=== PATIENT | male | born 1985 | race Caucasian/White ===

== ENCOUNTER 2021-08-08 16:23 | Emergency (ER) | payer MEDICAID ==
[~2021-08-08] VITALS: Ht 177.8 cm; Wt 74.0 kg
[2021-08-08 16:28] VITALS: BP 133/88
[2021-08-08] MEDS ORDERED: TETanus/Pertussis (Acell)/Diphther VAC/PF (Tdap-Adult) 0.5ml syringe IMVAC ONE (17:00)
[2021-08-08] MEDS ORDERED: LIDOcaine 1% 30ml preserv. free vial IJ ONE (17:00)
[2021-08-08] MEDS ORDERED: CEPH-585 PO (18:14)
[2021-08-08] MEDS ORDERED: bacitracin 15gm ointment TP ONE (18:15)
== END 2021-08-08 18:59 | disposition home or self-care (01) ==
LOC: ER 16:24
DX: S61.012A Laceration without foreign body of left thumb without damage to nail, initial encounter (principal); R42 Dizziness and giddiness; Z20.3 Contact with and (suspected) exposure to rabies; Z79.2 Long term (current) use of antibiotics; X58.XXXA Exposure to other specified factors, initial encounter; Y93.89 Activity, other specified; Y92.89 Other specified places as the place of occurrence of the external cause; Y99.8 Other external cause status
CPT/HCPCS: 12041; 90471; 90715; 99283; 99284

== ENCOUNTER 2023-12-29 18:37 | Emergency (ER) | payer MEDICAID ==
[~2023-12-29] VITALS: Ht 177.8 cm; Wt 70.0 kg
[2023-12-29] MEDS: normal saline 1000ml 1,000 ML IV ONE (20:26)
[2023-12-29] MEDS: LORazepam 2 mg/ml vial IV ONE (20:27)
[2023-12-29] MEDS: famotidine 10mg/ml inj IV ONE (20:28)
[2023-12-29 20:57] LABS: URINE AMPHETAMINE SCREEN NEGATIVE (Neg); URINE BARBITUATE SCREEN NEGATIVE (Neg); URINE BENZODIAZEPINES SCREEN NEGATIVE (Neg); URINE CANNABINOID SCREEN POSITIVE (Neg); URINE COCAINE SCREEN NEGATIVE (Neg); URINE METHADONE SCREEN NEGATIVE (Neg); URINE OPIATE SCREEN NEGATIVE (Neg); URINE PHENCYCLIDINE SCREEN NEGATIVE (Neg)
[2023-12-29 21:22] LABS: ANION GAP 11 (8-16); BLOOD UREA NITROGEN 7 MG/DL (7-18); BUN/CREATININE RATIO 6.3 (10.0-20.0); CHLORIDE 108 MMOL/L (99-107); CREATININE 1.11 MG/DL (0.60-1.10); GLUCOSE 91 MG/DL (70-104); POTASSIUM 3.6 MMOL/L (3.5-5.1); SODIUM 147 MMOL/L (135-145); TOTAL CARBON DIOXIDE 28.3 MMOL/L (24-32)
[2023-12-29 21:23] LABS: ALANINE AMINOTRANSFERASE 39 U/L (12-78); ALBUMIN 3.8 G/DL (3.4-5.0); ALBUMIN/GLOBULIN RATIO 1.1 (1.1-1.5); ALKALINE PHOSPHATASE 70 IU/L (46-116); ASPARTATE AMINO TRANSFERASE 46 U/L (10-37); BILIRUBIN,TOTAL 0.3 MG/DL (0.1-1.0); CALCIUM 8.4 MG/DL (8.5-10.1); TOTAL PROTEIN 7.4 G/DL (6.4-8.2); eCRCL 90 ML/MIN; eGFR 75 ML/MIN
[2023-12-29 21:26] LABS: ETHANOL 271 MG/DL (<10); LIPASE 30 U/L (16-77)
[2023-12-29 21:28] LABS: BASOPHILS # (AUTO) 0.1 X10'3 (0-0.2); BASOPHILS % (AUTO) 1.3 % (0-1); EOSINOPHILS # (AUTO) 0.1 X10'3 (0-0.9); EOSINOPHILS % (AUTO) 1.4 % (0-6); HEMATOCRIT 46.9 % (42.0-52.0); HEMOGLOBIN 16.1 g/dl (14.0-17.9); LYMPHOCYTES # (AUTO) 4.1 X10'3 (1.1-4.8); LYMPHOCYTES % (AUTO) 47.9 % (21-51); MEAN CORPUSCULAR HEMOGLOBIN 32.7 PG (27.0-31.0); MEAN CORPUSCULAR HGB CONC 34.3 g/dL (33.0-36.5); MEAN CORPUSCULAR VOLUME 95.4 FL (78-98); MEAN PLATELET VOLUME 8.1 FL (7.4-10.4); MONOCYTES # (AUTO) 0.9 X10'3 (0-0.9); MONOCYTES % (AUTO) 10.2 % (2-12); NEUTROPHILS # (AUTO) 3.4 X10'3 (1.8-7.7); NEUTROPHILS % (AUTO) 39.2 % (42-75); PLATELET COUNT 230 X10'3 (140-440); RED BLOOD COUNT 4.92 X10'6 (4.70-6.10); RED CELL DISTRIBUTION WIDTH 13.6 % (11.5-14.5); WHITE BLOOD COUNT 8.6 X10'3 (4.5-11.0)
[2023-12-29 23:57] VITALS: BP 121/72; PULSE 90; RESP 16; TEMP 98.8; O2SAT 97
== END 2023-12-30 00:11 | disposition home or self-care (01) ==
LOC: ER 18:38
DX: F10.239 Alcohol dependence with withdrawal, unspecified (principal); Y90.9 Presence of alcohol in blood, level not specified
CPT/HCPCS: 36415; 80053; 80305; 80320; 83690; 84484; 85025; 93005; 96361; 96374; 96375; 99284; J2060; J3490; J7030

== ENCOUNTER 2024-02-24 10:11 | Emergency (ER) | payer MEDICAID ==
[~2024-02-24] VITALS: Ht 175.3 cm; Wt 64.0 kg
[2024-02-24 10:30] VITALS: BP 138/91; PULSE 115; RESP 16; TEMP 98.6; O2SAT 98
== END 2024-02-24 10:58 | disposition home or self-care (01) ==
LOC: ER 10:12
DX: Z00.00 Encounter for general adult medical examination without abnormal findings (principal)
CPT/HCPCS: 99281

== ENCOUNTER 2024-03-25 15:33 | Emergency (ER) | payer MEDICAID ==
[~2024-03-25] VITALS: Ht 177.8 cm; Wt 77.3 kg
[2024-03-25 15:43] VITALS: BP 119/85; PULSE 127; TEMP 98.7; O2SAT 97
[2024-03-25 16:22] VITALS: RESP 16
== END 2024-03-25 18:20 | disposition home or self-care (01) ==
LOC: ER 15:34
DX: S05.12XA Contusion of eyeball and orbital tissues, left eye, initial encounter (principal); F10.10 Alcohol abuse, uncomplicated; Y90.9 Presence of alcohol in blood, level not specified; Y08.89XA Assault by other specified means, initial encounter; Y93.89 Activity, other specified; Y92.89 Other specified places as the place of occurrence of the external cause; Y99.8 Other external cause status
CPT/HCPCS: 70450; 99284

== ENCOUNTER 2024-04-20 07:59 | Emergency (ER) | payer MEDICAID ==
[~2024-04-20] VITALS: Ht 175.3 cm; Wt 78.0 kg
[2024-04-20 08:06] VITALS: BP 151/84; PULSE 86; RESP 16; O2SAT 99
[2024-04-20 09:46] VITALS: TEMP 97.3
== END 2024-04-20 09:47 | disposition home or self-care (01) ==
LOC: ER 08:00
DX: F10.239 Alcohol dependence with withdrawal, unspecified (principal)
CPT/HCPCS: 99281

== ENCOUNTER 2025-03-14 16:15 | Inpatient (IN) | payer OTHER, MEDICAID ==
[~2025-03-14] VITALS: Ht 177.8 cm; Wt 73.1 kg
--- NOTE | 2025-03-14 16:57 | Physician Documentation ---
History of Present Illness ~ Chief Complaint: Headache Stated Complaint: HEAD PAIN Time Seen by MD: 22:00 Primary Medical Doctor: NONE HPI This is a 39-year-old gentleman who has a prolific alcoholic drinking about a handle of liquor a day, comes in for evaluation of alcohol withdrawal. It has been about a 10 hours since the last drink. He has been seen at [facility] and has been prescribed Librium. He attempted to take that medication, and ended up throwing it up. He feels that he is getting worse. He would like to quit drinking permanently. Reports severe nausea and vomiting. Reports anxiety. Reports headache. No particular palliating or aggravating factors. He has never quit drinking before. No history of alcohol withdrawal seizures. Medication Reconciliation Allergies: Coded Allergies: No Known Allergies (Unverified , 03/14/25) Past Medical History Past Medical History: No Pertinent History Past Surgical History: noncontributory Review of Systems ROS 10 point review of systems was performed and unless noted above in HPI is negative for acute process/complaint. Physical Exam Vital Signs: Temperature: 97.8, Source: Temporal, Heart Rate: 114, Respiratory Rate: 20, BP: 152/85, Pulse Oximetry: 96, Weight: 73.100 Physical Exam GENERAL: Awake, alert, oriented, GCS 15, no apparent distress, non-toxic appearing, answers questions, follows commands appropriately. Anxious appearing. Examined in bed 9. HEENT: Atraumatic, normocephalic, pupils equal, extraocular muscles intact, sclerae anicteric, tongue fasciculation noted, mucus membranes moist, oropharynx is clear, no stridor. NECK: supple, full active range of motion, trachea midline, no thyromegaly, no lymphadenopathy, no JVD. CARDIOVASCULAR: Tachycardic and regular rate/rhythm, no murmurs/gallops/rubs, Pulses are 2+ in all extremities and symmetric. Capillary refill less than 2 seconds. PULMONARY: Nonlabored, good air movement ,no respiratory distress, speaking in full sentences, clear to auscultation bilaterally, no wheezing, no ronchi, no rales, no accessory muscle use. GASTROINTESTINAL: Soft, non-tender, non-distended, normal active bowel sounds, no organomegaly, no pulsatile masses, no CVA tenderness. NEUROLOGIC: Lucid with normal mental status. Normal facial symmetry. Moves all extremities symmetrically and with purpose. No truncal ataxia. Speech is fluid without evidence of dysarthria or aphasia, no focal deficits appreciated. Bilateral upper extremity tremors noted. MUSCULOSKELETAL: There is full range of motion of all extremities. There is no joint pain or joint swelling or joint erythema. There is no muscle pain or tenderness or swelling. EXTREMITIES: warm, well-perfused, no cyanosis, no clubbing, no edema, no acute deformities. Skin: warm, dry, no rashes or lesions, no jaundice, no petechiae orpurpura. No ecchymosis. PSYCHIATRIC: Anxious affect, normal insight, normal concentration. Focused exam: [] Progress Results/Orders Results/Orders Orders - JOHNNY SOTO DO * Vital Signs Routine* (03/14/25 22:00) * Activity * (03/14/25 22:00) * Implement/Maintain Seizure P (03/14/25 22:00) Branch Logistics Supervisor (03/14/25 22:00) Saline Lock (03/14/25 22:00) Lorazepam Inj (Ativan Inj) (03/14/25 22:00) Monitor (03/14/25 22:00) * Withdrawal Tx/Call Md If:* (03/14/25 22:00) Thiamine Inj. (Thiamine Inj.) (03/15/25 08:00) [facility] (03/14/25 22:20) Page Hospitalist (03/14/25 23:19) Fill Out Med Reconciliation (03/14/25 23:19) Completed Orders - JOHNNY SOTO DO Stat Ekg (03/14/25 ) Folic Acid Inj. (Folic Acid Inj.) (03/14/25 22:00) Cbc/Diff (03/14/25 22:00) Lipase (03/14/25 22:00) Pt Inr (03/14/25 22:00) PTT (03/14/25 22:00) MG (03/14/25 22:00) Normal Saline 1000ml (Sodium Chloride 10 (03/14/25 22:00) Hs Troponin I W Calculations (03/14/25 22:00) CMP (03/14/25 22:00) Phenobarbital Inj (Phenobarbital Inj.) (03/14/25 22:00) Prochlorperazine Inj (Compazine Inj) (03/14/25 22:25) Ethanol (03/14/25 22:11) Medications Received in ER Medications (Trade) Dose Ordered Sig/Chago Route PRN Reason Start Time Stop Time Status Last Admin Dose Admin (sodium chloride 1000ml IV soln) 1,000 ml ONCE ONCE IVB 03/14/25 22:00 03/14/25 22:07 DC 03/14/25 23:09 1,000 ML (phenoBARBITAL inj.) 260 mg ONCE ONCE IV 03/14/25 22:00 03/14/25 22:07 DC 03/14/25 23:04 260 MG Vital Signs 03/14/25 03/14/25 16:32 20:26 Temp 97.8 Pulse 114 118 Resp 20 16 B/P (MAP) 152/85 141/95 (110) Pulse Ox 96 95 O2 Flow Rate 0 Laboratory Tests Test 03/14/25 22:11 White Blood Count 8.1 Red Blood Count 4.78 Hemoglobin 15.1 Hematocrit 44.3 Mean Corpuscular Volume 92.8 Mean Corpuscular Hemoglobin 31.6 H Mean Corpuscular Hemoglobin Concent 34.0 Red Cell Distribution Width 14.8 H Platelet Count 126 L Mean Platelet Volume 7.3 L Neutrophils (%) (Auto) 67.8 Lymphocytes (%) (Auto) 20.5 L Monocytes (%) (Auto) 9.9 Eosinophils (%) (Auto) 0.6 Basophils (%) (Auto) 1.2 H Neutrophils # (Auto) 5.5 Lymphocytes # (Auto) 1.7 Monocytes # (Auto) 0.8 Eosinophils # (Auto) 0.0 Basophils # (Auto) 0.1 CBC Comment Prothrombin Time 10.8 INR International Normalized Ratio 1.1 Activated Partial Thromboplast Time 28 Coagulation Comments Sodium Level 142 Potassium Level 3.3 L Chloride Level 100 Carbon Dioxide Level 30.6 Anion Gap 11 Blood Urea Nitrogen 11 Creatinine 0.85 Estimated GFR/1.73 m2 > 90 BUN/Creatinine Ratio 12.9 Glucose Level 87 Calcium Level 8.2 L Magnesium Level 1.6 Total Bilirubin 0.6 Aspartate Amino Transf (AST/SGOT) 108 H Alanine Aminotransferase (ALT/SGPT) 80 H Alkaline Phosphatase 89 Troponin I High Sensitivity 36 Total Protein 6.9 Albumin 3.6 Globulin 3.3 Albumin/Globulin Ratio 1.1 Lipase 35 Chemistry Comments Ethyl Alcohol Level 232 H Medical Decision Making Findings Facility Status: ED Holds, RME process The plan was discussed with the patient, who demonstrates clear understanding of the plan and is in agreement with the plan unless otherwise noted in the chart. All questions have been answered, all concerns were addressed unless otherwise documented. I was available throughout their ED stay for frequent reassessment and questions. Differential Diagnoses (considered and possible or likely): [Alcohol withdrawal, uncomplicated, alcohol withdrawal complicated by delirium tremors, hallucinations, seizures, dehydration, electrolyte derangement, alcoholic ketoacidosis, headache most likely related to alcohol withdrawal, less likely tension, less likely migraine, less likely trigeminal neuralgia, less likely foster organic. Unlikely to represent intracranial bleed.] ??Differential Diagnoses (considered and unlikely, not requiring evaluation currently): [No evidence of lateralizing signs to suspect a stroke, no trauma. He did report trauma six days ago, however received a palliation at [facility] including CTs.] MDM Data Please see [facility] for the following: Independent Historians and external Records Demetrio hawkins. Historian: [Patient] Independent Historians: ?[Record review] Medication Management: [Reviewed medication list] Social History and determinants: [Reviewed] Please see the body of the note for the following: Any independent interpretations of ECG, imaging studies. All vitals signs/haemodynamics, ordered tests were independently reviewed and interpreted by myself. Nursing triage complaint and vitals reviewed, additional nursing notes were reviewed as available and I agree unless otherwise noted or documented in contradiction in the chart Vital Signs: Independently reviewed Labs: Independently interpreted Imaging: Independently interpreted Old Medical Records: Independently reviewed, see [facility] for relevant summary and information Pulse Oximetry: [95%] interpreted as [normal on room air] by me [Plumbing Mechanic: Tachycardic Rate, Regular rhythm, no ectopy, sinus tachycardia. reviewed and interpreted by me] Additionally notably showing: [Tachycardic, hypotensive, anxious/agitated, consistent with a alcohol withdrawal] alcohol is 232, however the gentleman is obviously clinically withdrawing. It is likely that he lives at a very high alcohol level. Otherwise unremarkable laboratory workup. Tests considered but not ordered include: [Advanced imaging of the head current but does not appear to be necessary] Social Determinants of Health Impact: Patient was evaluated in [facility] [place] to healthcare due to below par ratio of patient to medical providers. [] Comorbid Conditions Impacting Present Evaluation and Care/Treatment: [Prolific alcoholism] Management Discussions with other Healthcare Providers: [Hospitalist regarding admission] Treatment and Disposition Medication Management (Given or considered): [Phenobarbital and Ativan PRN]. See EMR for details Consideration for Hospitalization/Escalation/Deescalation of Care: Admission for observation is necessary for further management of his alcohol withdrawal ?ED Course:?[See why improved with phenobarbital] ?Shared decision making:?[] Code status:?FULL Please see the full Electronic Medical Record for full details of nursing documentation, medications list, other records of complete past medical history and conditions, vital signs, laboratory studies, and any radiologic study interpretations by radiologists. Portions of this note were completed using [employer] dictation software and as a result there may exist minor errors in spelling. I have reviewed elements of past family and social history and agree as included in note. Departure Disposition: ADMITTED INPATIENT Admitted to Inpatient Unit: to hospitalist Impression: Primary Impression: Alcohol withdrawal Additional Impression: Headache Condition: Improved Referrals: NO PRIMARY CARE PROVIDER (PCP) Critical Care Note Critical Care Note CRITICAL CARE TIME: [ 35] minutes Treatments/Evaluations: Close monitoring and treatment of unstable vital signs, cardiorespiratory, and neurologic status, while maintaining tight balance of fluid, respiratory, and cardiac interventions. This time includes discussing the case with the patient and the patients family. This time does not include all procedures stated elsewhere in this record. This time also includes reviewing old records, labs and radiological studies. This time includes examining and re-examining the patient. Additionally, this time also includes arranging care with admitting and consulting physicians. Additional Comment Medical Screen Exam History: This is a 39-year-old male who presents by EMS from [facility], patient reports he sustained a concussion several days ago in his had a headache ever since, patient reports that he has been drinking large amounts of alcohol to treat the headache and therefore he has not been taking his prescribed lithium. Exam: VITALS: Reviewed and as above. GENERAL: Alert, nontoxic appearing, no apparent distress RESPIRATORY: No increased work of breathing, no respiratory distress, speaking in full clear sentences Signature Scribe Signature: No scribe Attestation: This note accurately reflects clinical decisions, work performed by myself, Johnny Soto, [facility] Mar 14, 2025 16:57 JOHNNY SOTO DO Mar 14, 2025 22:30
--- NOTE | 2025-03-14 21:52 | ELECTROCARDIOGRAPH REPORT ---
[facility] Test Date: 2025-03-14 Test Time: 21:50:49 Pat Name: BARBARA BOLAÑOS Department: EMERGENCY ROOM Room: Gender: M Gas Engine Mechanic: MONICA : 1985 Requested By: BEATRIZ SOTO Order Number: [id number] Reading MD: Measurements Intervals [place] Rate: 88 P: 50 MD: 140 QRS: 67 QRSD: 84 T: 54 QT: 359 QTc: 435 Interpretive Statements Sinus rhythm Abnormal R-wave progression, early transition Minimal ST elevation, anterior leads Please click the below link to view image of tracing.
[2025-03-14] MEDS ORDERED: folic acid 1mg/0.2ml inj IV ONE (22:00)
[2025-03-14 22:22] LABS: BASOPHILS # (AUTO) 0.1 X10'3 (0-0.2); BASOPHILS % (AUTO) 1.2 % (0-1); EOSINOPHILS % (AUTO) 0.6 % (0-6); HEMATOCRIT 44.3 % (42.0-52.0); HEMOGLOBIN 15.1 g/dl (14.0-17.9); LYMPHOCYTES # (AUTO) 1.7 X10'3 (1.1-4.8); LYMPHOCYTES % (AUTO) 20.5 % (21-51); MEAN CORPUSCULAR HEMOGLOBIN 31.6 PG (27.0-31.0); MEAN CORPUSCULAR VOLUME 92.8 FL (78-98); MEAN PLATELET VOLUME 7.3 FL (7.4-10.4); MONOCYTES # (AUTO) 0.8 X10'3 (0-0.9); MONOCYTES % (AUTO) 9.9 % (2-12); NEUTROPHILS # (AUTO) 5.5 X10'3 (1.8-7.7); NEUTROPHILS % (AUTO) 67.8 % (42-75); PLATELET COUNT 126 X10'3 (140-440); RED BLOOD COUNT 4.78 X10'6 (4.70-6.10); RED CELL DISTRIBUTION WIDTH 14.8 % (11.5-14.5); WHITE BLOOD COUNT 8.1 X10'3 (4.5-11.0)
[2025-03-14 22:30] LABS: APTT 28 SECONDS (22-32); INR 1.1 INR; PROTHROMBIN TIME 10.8 SECONDS (9.0-12.0)
[2025-03-14 22:32] LABS: ALANINE AMINOTRANSFERASE 80 U/L (12-78); ALBUMIN 3.6 G/DL (3.4-5.0); ALBUMIN/GLOBULIN RATIO 1.1 (1.1-1.5); ALKALINE PHOSPHATASE 89 IU/L (46-116); ANION GAP 11 (8-16); ASPARTATE AMINO TRANSFERASE 108 U/L (10-37); BILIRUBIN,TOTAL 0.6 MG/DL (0.1-1.0); BLOOD UREA NITROGEN 11 MG/DL (7-18); BUN/CREATININE RATIO 12.9 (10.0-20.0); CALCIUM 8.2 MG/DL (8.5-10.1); CHLORIDE 100 MMOL/L (99-107); CREATININE 0.85 MG/DL (0.60-1.10); GLUCOSE 87 MG/DL (70-104); LIPASE 35 U/L (16-77); MAGNESIUM 1.6 MG/DL (1.5-2.4); POTASSIUM 3.3 MMOL/L (3.5-5.1); SODIUM 142 MMOL/L (135-145); TOTAL CARBON DIOXIDE 30.6 MMOL/L (24-32); TOTAL PROTEIN 6.9 G/DL (6.4-8.2); eCRCL 122 ML/MIN; eGFR > 90 ML/MIN
[2025-03-14 22:40] LABS: ETHANOL 232 MG/DL (<10)
[2025-03-14] MEDS: phenoBARBITAL sod 130mg/ml inj. IV ONE (23:04)
[2025-03-14] MEDS: normal saline 1000ML IV soln IVB ONE (23:09)
[2025-03-14] MEDS: proCHLORperazine 10 MG/2 ml inj IV ONE (23:39)
[2025-03-14] MEDS ORDERED: thiamine 100mg/ml 2ml inj. IV SCH (23:49)
[2025-03-14] MEDS ORDERED: acetaminophen 325mg tablet PO PRN (23:55)
[2025-03-14] MEDS ORDERED: morphine 2 MG/ML inj. syringe IV PRN (23:55)
[2025-03-14] MEDS ORDERED: potassium Cl 20 mEq SR tablet PO PRN (23:55)
[2025-03-14] MEDS ORDERED: magnesium sulf-water 4G/100mL 100 ML IV PRN (23:55)
[2025-03-14] MEDS ORDERED: magnesium hydroxide 30ml (MOM) UD suspension PO PRN (23:55)
[2025-03-14] MEDS ORDERED: magnesium sulf-water 2g/50mL 50 ML IV PRN (23:55)
[2025-03-14] MEDS ORDERED: magnesium Cl slow-release 64mg tablet PO PRN (23:55)
[2025-03-14] MEDS ORDERED: HYDROmorphone inj. 0.5 MG/0.5 ML DISP.SYRIN IV PRN (23:55)
[2025-03-14] MEDS ORDERED: potassium Cl 40MEQ/1/2NS 520ml 520 ML IV PRN (23:55)
[2025-03-15] VITALS (7 sets, daily range): BP systolic 124–145; BP diastolic 72–87; PULSE 57–71; RESP 15–21; TEMP 97.2–98.9; O2SAT 95–99
[2025-03-15] MEDS ORDERED: LORazepam 2 mg/ml vial IV PRN
[2025-03-15] MEDS ORDERED: dextrose 50%-water 50ml dispensing syringe IV PRN
[2025-03-15] MEDS ORDERED: haloperidol lactate 5mg/ml inj IM PRN
--- NOTE | 2025-03-15 01:01 | HISTORY AND PHYSICAL-Residence ---
History & Physical Providers to CC Resident Creating Document: AMRYELLEN SALAZAR RES ~ History of Present Illness Primary Medical Doctor: NONE Reason for Admit\Complaint: Alcohol withdrawal, alcohol intoxication History of Present Illness 39-year-old male with past medical history of alcohol use disorder presented to the ER after alcohol intoxication along with his friend(Ricardo) at [facility]. His last drink seems to be around 13 hours back but he he could not able to clearly tell the exact time. He do reports couple of vodka shots before 10:00 p.m. he endorses nausea and vomiting for the past one day, 3-5 episodes after he attempted to take Librium ,prescribed at [facility]. Complaining of loss of consciousness after alcohol intoxication. He do reports headache, occipital region. He denied pain abdomen, abdominal distention, seizure, photophobia, decreased urine output, swelling of legs, chest pain, palpitations, fever, cough, wheeze. He has been drinking the alcohol for quite a long time Discussed code status with the patient patient wants to be in full code Allergies: Coded Allergies: No Known Allergies (Unverified , 03/14/25) Home Medications Home Medications Active Past Medical History Past Medical History Alcohol use disorder Eye contusion Past Surgical History Surgical History Comment Noncontributory Family History Family History: Patient reports no known family medical history. Past Social History Smoking: Non-Smoker Alcohol Use: Heavy Drug Use: Marijuana ROS All Other Systems: Reviewed and Negative ROS Reviewed in full and negative except positive pertinent as in HPI Exam Vitals: Vital Signs Date Time Temp Pulse Resp B/P (MAP) Pulse Ox O2 Delivery O2 Flow Rate FiO2 03/15/25 00:16 10 03/14/25 20:26 118 95 0 03/14/25 16:32 97.8 General: General: Awake, alert, oriented, GCS 15, no apparent distress, non-toxic appearing, answers questions, follows commands appropriately. Anxious appearing. Heent: Atraumatic, normocephalic, bilateral conjunctival congestion is present. pupils equal, extraocular muscles intact, sclerae anicteric, tongue fasciculatio n noted, mucus membranes moist, oropharynx is clear, no stridor. Neck: supple, full active range of motion, trachea midline, no thyromegaly, no lymphadenopathy, no JVD. Cardiovascular:: Tachycardic and regular rate/rhythm, no murmurs/gallops/rubs, Pulses are 2+ in all extremities and symmetric. Capillary refill less than 2 seconds. Respiratory system: Nonlabored, good air movement ,no respiratory distress, speaking in full sentences, clear to auscultation bilaterally, no wheezing, no ronchi, no rales, no accessory muscle use. Gastrointestinal: Soft, non-tender, non-distended, normal active bowel sounds, no organomegaly, no pulsatile masses, no CVA tenderness. Neurological system: Lucid with normal mental status. Normal facial symmetry. Moves all extremities symmetrically and with purpose. No truncal ataxia. Speech is fluid without evidence of dysarthria or aphasia, no focal deficits appreciated. Bilateral upper extremity tremors noted. Musculoskeletal: There is full range of motion of all extremities. There is no joint pain or joint swelling or joint erythema. There is no muscle pain or tenderness or swelling. Extremities: warm, well-perfused, no cyanosis, no clubbing, no edema, no acute deformities. Skin: warm, dry, no rashes or lesions, no jaundice, no petechiae orpurpura. No ecchymosis. Psychiatric: Anxious affect, normal insight, normal concentration Diagnostic Data Last Recorded Lab Results: 03/14/25 2211 03/14/25 2211 Diagnostic Data: Laboratory Tests Test 03/14/25 22:11 Prothrombin Time 10.8 SECONDS (9.0-12.0) INR International Normalized Ratio 1.1 INR Activated Partial Thromboplast Time 28 SECONDS (22-32) Coagulation Comments Advance Care Planning Advanced Care planning: Add on additional 30 min Additional Plan Acute metabolic encephalopathy secondary to acute alcohol intoxication In alcohol withdrawal Hypokalemia Tachycardia and high blood pressures are noted suggestive of alcohol withdrawal CBC is not impressive . Potassium is 3.3, AST 108, ALT 80 Troponin and lipase is normal EKGs normal Ethyl alcohol level is 232 director of volunteer services and substance use navigator consult were placed and we will appreciate the recommendation Patient is on moderate alcohol detox protocol with thiamine, folic acid, multivitamin, lorazepam, Haldol and we will start dextrose after thiamine Ordered CT and CT ruled out acute intracranial abnormality. Chest x-ray is normal Urine analysis and U tox is ordered Patient is on potassium replacement protocol and we will Continue to monitor CMP Marijuana use UA tox is ordered and we will follow up with the results Code status: Full code Diet: NPO until bedside speech therapy evaluation/swallowing PT: Ordered Prognosis: Guarded Maryellen Salazar resident Date of Service: Mar 15, 2025 Billing Provider: SHERRIE ADORNO MD, VENKATESH, RES Mar 15, 2025 01:01
--- NOTE | 2025-03-15 01:11 | RADIOLOGY REPORT ---
EXAM: CT CT HEAD INDICATION: ACUTE METABOLIC ENCEPHALOPATHY WITH ACUTE ALCOHOL INTOXICATION TECHNIQUE: CT of the head without intravenous contrast. Radiation Dose : 1. Head: CT Dose: CTDI volume is 61.28 mGy. Dose-length product is 1125.4 mGy*cm The dose indicators for CT are the volume Computed Tomography (CT) Dose Index (CTDIvol) and the Dose Length Product (DLP), and are measured in units of mGy and mGy-cm, respectively. These indicators are not patient dose, but values generated from the CT scanner acquisition factors. The report includes radiation exposure data for exposures received during this examination. COMPARISON: CT CT HEAD on DOS: 03/25/24 FINDINGS: There is no evidence of acute intracranial hemorrhage, extra-axial collection, mass effect, midline s hift, herniation or hydrocephalus. The ventricles, sulci and cisterns are age appropriate. The ortiz-white differentiation is intact. Minimal bilateral maxillary mucosal sinus disease. The remaining visualized paranasal sinuses and ma stoid air cells are clear. The surrounding soft tissues and osseous structures are unremarkable. IMPRESSION: 1. No acute intracranial abnormality. Radiation optimization: All CT scans at this facility use at least one of these dose optimization malena hniques: automated exposure control mA and/or kV adjustment per patient size (includes targeted exam s where dose is matched to clinical indication) or iterative reconstruction.
--- NOTE | 2025-03-15 01:13 | RADIOLOGY REPORT ---
CHEST RADIOGRAPH Indication: ALCOHOL WITHDRAWAL, ALCOHOL INTOXICATION Technique: Single frontal view of the chest was obtained COMPARISON: None FINDINGS: Lines and Tubes: None Lungs: Clear Pleura: No effusion. No pneumothorax. Cardiomediastinal contours: Unremarkable Bones: Unremarkable IMPRESSION: 1. No acute disease.
[2025-03-15] MEDS: normal saline 1000ml 1,000 ML IV SCH (01:44)
[2025-03-15] MEDS: thiamine 100mg/ml 2ml inj. IV ONE (01:44)
[2025-03-15 03:20] LABS: BASOPHILS # (AUTO) 0.1 X10'3 (0-0.2); BASOPHILS % (AUTO) 1.4 % (0-1); EOSINOPHILS % (AUTO) 0.4 % (0-6); HEMATOCRIT 40.5 % (42.0-52.0); HEMOGLOBIN 13.9 g/dl (14.0-17.9); LYMPHOCYTES # (AUTO) 2.2 X10'3 (1.1-4.8); LYMPHOCYTES % (AUTO) 24.7 % (21-51); MEAN CORPUSCULAR HEMOGLOBIN 31.7 PG (27.0-31.0); MEAN CORPUSCULAR HGB CONC 34.2 g/dL (33.0-36.5); MEAN CORPUSCULAR VOLUME 92.8 FL (78-98); MEAN PLATELET VOLUME 7.5 FL (7.4-10.4); MONOCYTES # (AUTO) 0.7 X10'3 (0-0.9); MONOCYTES % (AUTO) 7.8 % (2-12); NEUTROPHILS % (AUTO) 65.7 % (42-75); PLATELET COUNT 116 X10'3 (140-440); RED BLOOD COUNT 4.37 X10'6 (4.70-6.10); RED CELL DISTRIBUTION WIDTH 14.7 % (11.5-14.5); WHITE BLOOD COUNT 9.1 X10'3 (4.5-11.0)
[2025-03-15 03:28] LABS: INR 1.1 INR; PROTHROMBIN TIME 10.9 SECONDS (9.0-12.0)
[2025-03-15 03:32] LABS: ALANINE AMINOTRANSFERASE 72 U/L (12-78); ALBUMIN 3.1 G/DL (3.4-5.0); ALBUMIN/GLOBULIN RATIO 1.1 (1.1-1.5); ALKALINE PHOSPHATASE 80 IU/L (46-116); AMYLASE 43 U/L (25-115); ANION GAP 9 (8-16); ASPARTATE AMINO TRANSFERASE 94 U/L (10-37); BILIRUBIN,TOTAL 0.8 MG/DL (0.1-1.0); BLOOD UREA NITROGEN 9 MG/DL (7-18); CALCIUM 7.5 MG/DL (8.5-10.1); CHLORIDE 103 MMOL/L (99-107); CREATININE 0.69 MG/DL (0.60-1.10); GLUCOSE 73 MG/DL (70-104); LIPASE 34 U/L (16-77); MAGNESIUM 1.5 MG/DL (1.5-2.4); PHOSPHORUS 2.8 MG/DL (2.3-4.5); POTASSIUM 3.1 MMOL/L (3.5-5.1); SODIUM 141 MMOL/L (135-145); TOTAL CARBON DIOXIDE 28.7 MMOL/L (24-32); eCRCL 150 ML/MIN; eGFR > 90 ML/MIN
[2025-03-15] MEDS ORDERED: NO HOME MEDS (07:04)
[2025-03-15 07:09] LABS: URINE AMPHETAMINE SCREEN NEGATIVE (Neg); URINE BARBITUATE SCREEN POSITIVE (Neg); URINE BENZODIAZEPINES SCREEN POSITIVE (Neg); URINE CANNABINOID SCREEN POSITIVE (Neg); URINE COCAINE SCREEN NEGATIVE (Neg); URINE METHADONE SCREEN NEGATIVE (Neg); URINE OPIATE SCREEN NEGATIVE (Neg); URINE PHENCYCLIDINE SCREEN NEGATIVE (Neg)
[2025-03-15 07:35] LABS: BILIRUBIN,URINE NEGATIVE (Neg); CLARITY,URINE CLEAR (Clear); COLOR,URINE YELLOW (Yellow); GLUCOSE, URINE NEGATIVE (Neg); KETONES,URINE 40 mg/dl (Neg); LEUKOCYTE ESTERASE ,URINE NEGATIVE (Neg); NITRITES, URINE NEGATIVE (Neg); OCCULT BLOOD,URINE NEGATIVE (Neg); PROTEIN,URINE TRACE mg/dl (Neg)
[2025-03-15 07:37] LABS: BACTERIA,URINE NONE SEEN /HPF (Neg); SQUAMOUS EPITHELIAL CELL,UR FEW /LPF (FEW); UA COLLECTION TYPE CLN CATCH MIDSTREAM
[2025-03-15 07:38] LABS: MUCUS STRANDS NONE SEEN /LPF (Neg); RBC,URINE 0-2 /HPF (0-2); WBC,URINE 0-4 /HPF (0-4)
[2025-03-15] MEDS: docusate sod 100mg capsule PO SCH (08:00)
[2025-03-15] MEDS: K and/or MAG REPLACEMENT MC SCH (08:00)
[2025-03-15] MEDS: potassium Cl 20 mEq SR tablet PO PRN (10:24)
[2025-03-15] MEDS: multivitamins, therapeutics tablet PO SCH (10:24)
[2025-03-15] MEDS: thiamine 100mg/ml 2ml inj. IV SCH (10:25)
[2025-03-15] MEDS: atenolol 50mg tablet PO SCH (10:25)
[2025-03-15] MEDS: folic acid 1mg/0.2ml inj IV ONE (10:26)
[2025-03-15] MEDS: LORazepam 2 mg/ml vial IV PRN (10:26)
[2025-03-15] MEDS: ondansetron/PF 4mg/2ml inj IV PRN (10:29)
[2025-03-15] MEDS: mag hydrox/Alum hydrox/simeth 30ml oral suspension PO PRN (10:29)
--- NOTE | 2025-03-15 15:58 | PROGRESS NOTE- Residence ---
Progress Note - Resident Providers to CC Resident Creating Document: RED VELARDE, RES ~ Antibiotic Timeout Antibiotic Ordered?: No Subjective The patient has been evaluated at the bedside. The patient reports improvement. Currently with signs of shakiness in bilateral upper extremities. Objective Vital Signs Date Time Temp Pulse Resp B/P (MAP) Pulse Ox O2 Delivery O2 Flow Rate FiO2 03/15/25 11:00 97.2 71 17 145/74 (97) 98 Room Air 03/15/25 06:20 0 Physical exam: General: Well alert, well oriented, not confused, not agitated, not in acute distress, well cooperated during the physical. HEENT: Conjunctive are pink, sclerae clear, no icterus, pupil is equal in both sides, reactive to light, no ear discharge, no pharyngeal erythema or an edema. Neck: Supple, no JVD, no lymphadenopathy and thyromegaly. Chest: Equal air entry on both lungs, no additional sounds no rhonchi no wheezing at the moment. Cardiovascular: S1-S2 regular sinus rhythm and, regular rate, no gallops, no rubs, no murmurs Abdomen: No visible peristalsis, Bowel sounds present on auscultation, soft, nontender, no guarding, no rigidity Extremities: No obvious deformities, no pitting edema bilaterally, capillary refill intact, peripheral pulsations are intact on both sides, bilateral upper extremity tremors evidenced on physical exam. Central Nervous System: No focal neurological deficits, no motor or sensory weakness in all 4 extremities, could move all 4 extremities, 2+ deep tendon reflexes, negative Babinski. Musculoskeletal: No joint swelling, deformities, inflammations, and no scoliosis and back tenderness Skin: Warm and dry. Result Diagram: 03/15/25 0304 03/15/25 0304 Coagulation Studies Laboratory Tests Test 03/14/25 22:11 03/15/25 03:04 Activated Partial Thromboplast Time 28 SECONDS (22-32) Prothrombin Time 10.9 SECONDS (9.0-12.0) INR International Normalized Ratio 1.1 INR Coagulation Comments Assessment Assessment 39-year-old male patient came to the hospital with chief complaint of loss of consciousness after alcohol intoxication. Plan Plan Acute metabolic encephalopathy secondary to acute alcohol intoxication Alcohol withdrawal: CIWA score: 9 points. Requires medication for withdrawal: Hypokalemia: Tachycardia and high blood pressures are noted suggestive of alcohol withdrawal CBC is not impressive . Potassium is 3.3, AST 108, ALT 80 Troponin and lipase is normal EKGs normal Ethyl alcohol level is 232 human services program specialist and substance use navigator consult were placed and we will appreciate the recommendation Patient is on moderate alcohol detox protocol with thiamine, folic acid, multivitamin, lorazepam, Haldol and we will start dextrose after thiamine Ordered CT and CT ruled out acute intracranial abnormality. Chest x-ray is normal Urine analysis and U tox is ordered Patient is on potassium replacement protocol and we will Continue to monitor CMP 03/15/2025: Continue folic acid IV 1 mg daily, thiamine 200 mg t.i.d., multivitamins, on lorazepam and Haldol PRN. Urine toxicology positive for cannabinoids. Substance use disorder and long term care social worker consulted. Replace potassium as per protocol. Substance use disorder: Marijuana use Urine toxicology positive for cannabinoids. Substance use disorder and long term care social worker consulted. Code status: Full code DVT prophylaxis: None Analgesia/sedation: Ativan, morphine Line/tube: PIV GI prophylaxis: Protonix Nutrition: Regular diet PT: Ordered Prognosis: Guarded Disposition: We will continue medical management. Anticipated discharge tomorrow. Red Madrigal Internal Medicine Resident [facility] Date of Service: Mar 15, 2025 Billing Provider: GEOVANY GARCES MD Common Visit Codes: [id number] INP/OBS CARE(HIGH) RED VELARDE, RES Mar 15, 2025 15:58 GEOVANY GARCES MD Mar 16, 2025 08:08
[2025-03-15] MEDS ORDERED: morphine 4 MG/ML inj SYRINge IV PRN (17:40)
[2025-03-16 02:00] VITALS: BP 112/73; PULSE 53; RESP 13; TEMP 97.6; O2SAT 99
[2025-03-16 06:00] VITALS: BP 104/72; PULSE 62; RESP 18; TEMP 97.4; O2SAT 96
[2025-03-16 06:09] LABS: BASOPHILS # (AUTO) 0.1 X10'3 (0-0.2); BASOPHILS % (AUTO) 0.9 % (0-1); EOSINOPHILS # (AUTO) 0.2 X10'3 (0-0.9); EOSINOPHILS % (AUTO) 2.1 % (0-6); HEMATOCRIT 42.5 % (42.0-52.0); HEMOGLOBIN 14.6 g/dl (14.0-17.9); LYMPHOCYTES # (AUTO) 1.6 X10'3 (1.1-4.8); LYMPHOCYTES % (AUTO) 22.6 % (21-51); MEAN CORPUSCULAR HEMOGLOBIN 31.9 PG (27.0-31.0); MEAN CORPUSCULAR HGB CONC 34.5 g/dL (33.0-36.5); MEAN CORPUSCULAR VOLUME 92.5 FL (78-98); MEAN PLATELET VOLUME 8.3 FL (7.4-10.4); MONOCYTES # (AUTO) 0.9 X10'3 (0-0.9); MONOCYTES % (AUTO) 11.9 % (2-12); NEUTROPHILS # (AUTO) 4.5 X10'3 (1.8-7.7); NEUTROPHILS % (AUTO) 62.5 % (42-75); PLATELET COUNT 83 X10'3 (140-440); RED BLOOD COUNT 4.59 X10'6 (4.70-6.10); RED CELL DISTRIBUTION WIDTH 14.5 % (11.5-14.5); WHITE BLOOD COUNT 7.3 X10'3 (4.5-11.0)
[2025-03-16 06:20] LABS: PROTHROMBIN TIME 10.7 SECONDS (9.0-12.0)
[2025-03-16 06:31] LABS: ALANINE AMINOTRANSFERASE 69 U/L (12-78); ALBUMIN 3.1 G/DL (3.4-5.0); ALKALINE PHOSPHATASE 80 IU/L (46-116); AMYLASE 42 U/L (25-115); ANION GAP 8 (8-16); ASPARTATE AMINO TRANSFERASE 76 U/L (10-37); BILIRUBIN,TOTAL 1.2 MG/DL (0.1-1.0); BLOOD UREA NITROGEN 7 MG/DL (7-18); BUN/CREATININE RATIO 9.5 (10.0-20.0); CALCIUM 8.5 MG/DL (8.5-10.1); CHLORIDE 103 MMOL/L (99-107); CREATININE 0.74 MG/DL (0.60-1.10); GLUCOSE 79 MG/DL (70-104); LIPASE 48 U/L (16-77); MAGNESIUM 1.7 MG/DL (1.5-2.4); PHOSPHORUS 2.6 MG/DL (2.3-4.5); POTASSIUM 3.5 MMOL/L (3.5-5.1); SODIUM 142 MMOL/L (135-145); TOTAL CARBON DIOXIDE 31.3 MMOL/L (24-32); TOTAL PROTEIN 6.3 G/DL (6.4-8.2); eCRCL 140 ML/MIN; eGFR > 90 ML/MIN
[2025-03-16 07:34] VITALS: BP_SYST 104; PULSE 62
[2025-03-16] MEDS: pantoprazole 40mg Tablet.DR PO SCH (07:34)
[2025-03-16] MEDS: folic acid 1mg/0.2ml inj IV SCH (07:34)
[2025-03-16 08:00] VITALS: RESP 18; O2SAT 96
[2025-03-16] MEDS ORDERED: THIA50TA10 PO (10:27)
[2025-03-16] MEDS ORDERED: FOLI0.4T6 PO (10:27)
--- NOTE | 2025-03-16 17:05 | DISCHARGE SUMMARY-Residence ---
Discharge Summary Providers to CC Resident Creating Document: ZOË JOVELZION JACIEL, RES ~ Discharge Summary Admission Diagnosis: ALCOHOL WITHDRAWAL/ALCOHOL INTOXICATION Hospital Course DATE OF ADMISSION: 03/15/2025 DATE OF DISCHARGE: 03/16/2025 Discharge Diagnosis\Comment: Acute metabolic encephalopathy secondary to acute alcohol intoxication Alcohol withdrawal: CIWA score: 9 points. Requires medication for withdrawal Hypokalemia-resolved Substance use disorder Marijuana use Operations\Procedures: None Consultants: None Complications: None Condition on DC: Stable New Medications: Folic Acid* (Folic Acid*) 0.4 Mg Tablet 1 TAB PO DAILY for 30 Days, #30 TAB Thiamine HCl (Vitamin B-1) 50 Mg Tablet 2 TAB PO DAILY for 30 Days, #60 TAB 0 Refills Continued Medications: Home Med List (No Home Medications) Each Discharge Summary: HPI: 39-year-old male with past medical history of alcohol use disorder presented to the ER after alcohol intoxication along with his friend(Ricardo) at [facility]. His last drink seems to be around 13 hours back but he he could not able to clearly tell the exact time. He do reports couple of vodka shots before 10:00 p.m. he endorses nausea and vomiting for the past one day, 3-5 episodes after he attempted to take Librium ,prescribed at [facility]. Complaining of loss of consciousness after alcohol intoxication. He do reports headache, occipital region. He denied pain abdomen, abdominal distention, seizure, photophobia, decreased urine output, swelling of legs, chest pain, palpitations, fever, cough, wheeze. He has been drinking the alcohol for quite a long time Discussed code status with the patient patient wants to be in full code. Hospital course: 39-year-old male patient came to the hospital with chief complaint of altered level of consciousness. Admitted with metabolic encephalopathy secondary to acute alcohol intoxication. Alcohol withdrawal CIWA score: 9 points the patient was started on alcohol withdrawal protocol. On physical exam shakiness was evidenced, Ativan was administered. Folic acid and thiamine was started. Urine screen came back positive for cannabinoids. Substance use disorder and child protective services social worker were consulted who provided resources to the patient. The patient completely oriented to person place and time on 03/16/2025. The patient remains hemodynamically stable. The patient will be discharged home. Upon discharge the patient refuses medication for alcohol withdrawal. Strong recommendation to stop alcohol was given. The patient will be discharged home. Discharge course: The patient remains hemodynamically stable. The patient will be discharged with the following instructions: come back to the emergency department or call 911 if severe chest pain, jessica rtness of breath fever is evidenced. patient services manager provided resources for alcohol consumption please follow up. Follow up with your primary care physician within 2 weeks. Strong recommendation to stop alcohol consumption. Physical exam: General: Well alert, well oriented, not confused, not agitated, not in acute distress, well cooperated during the physical. HEENT: Conjunctive are pink, sclerae clear, no icterus, pupil is equal in both sides, reactive to light, no ear discharge, no pharyngeal erythema or an edema. Neck: Supple, no JVD, no lymphadenopathy and thyromegaly. Chest: Equal air entry on both lungs, no additional sounds no rhonchi no wheezing at the moment. Cardiovascular: S1-S2 regular sinus rhythm and, regular rate, no gallops, no rubs, no murmurs Abdomen: No visible peristalsis, Bowel sounds present on auscultation, soft, nontender, no guarding, no rigidity Extremities: No obvious deformities, no pitting edema bilaterally, capillary refill intact, peripheral pulsations are intact on both sides. Central Nervous System: No focal neurological deficits, no motor or sensory weakness in all 4 extremities, could move all 4 extremities, 2+ deep tendon reflexes, negative Babinski. Musculoskeletal: No joint swelling, deformities, inflammations, and no scoliosis and back tenderness Skin: Warm and dry. *Problems/Diagnosis: (1) ETOH abuse Status: Acute (2) Alcohol withdrawal Status: Acute Total Time Spent on D/C: > 30 Minutes Date of Service: Mar 16, 2025 Billing Provider: GEOVANY GARCES MD Common Visit Codes: 86449-CWL/OBS DISCH DAY >30min Problem Qualifiers (1) Alcohol withdrawal: Complication of substance-induced condition: uncomplicated Qualified Codes: F10.930 - Alcohol use, unspecified with withdrawal, uncomplicated CHOALEKSANDRA JOVELZION JACIEL, RES Mar 16, 2025 17:04 GEOVANY GARCES MD Mar 17, 2025 07:59
[2025-03-17] MEDS ORDERED: LORazepam 1 MG tablet PO PRN
[2025-03-17] MEDS ORDERED: LORazepam 2 mg/ml vial IV PRN
[2025-03-18] MEDS ORDERED: thiamine 100mg tablet PO SCH (08:00)
[2025-03-19] MEDS ORDERED: LORazepam 2 mg/ml vial IV PRN
[2025-03-19] MEDS ORDERED: LORazepam 1 MG tablet PO PRN
[2025-03-19] MEDS ORDERED: folic acid 1mg tablet PO SCH (08:00)
== END 2025-03-16 11:03 | disposition home or self-care (01) | DRG 71 ==
LOC: ER 16:16 → ED HOLD 23:58 → EDBEDREQ 03-15 06:15 → PCU 3S 03-15 06:55
PROVIDERS: ADMIT Internal Medicine Critical Care Medicine; ATTEND Internal Medicine
DX: G93.41 Metabolic encephalopathy (principal); F10.939 Alcohol use, unspecified with withdrawal, unspecified; F10.920 Alcohol use, unspecified with intoxication, uncomplicated; E87.6 Hypokalemia; F12.90 Cannabis use, unspecified, uncomplicated
CPT/HCPCS: 36415; 70450; 71045; 80053; 80305; 80320; 81001; 82150; 82948; 83690; 83735; 84100; 84132; 84484; 85025; 85610; 85730; 87081; 92508; 92616; 93005; 96374; 96375; 99285; A6258; G0378; J0780; J2060; J2405; J2560; J3411; J3490; J7030

== ENCOUNTER 2025-03-29 16:07 | Emergency (ER) | payer MEDICAID, OTHER ==
[~2025-03-29] VITALS: Ht 175.3 cm; Wt 56.0 kg
[~2025-03-29 16:07] MED LIST: FOLI0.4T6 PO; NO HOME MEDS; THIA50TA10 PO
[2025-03-29 16:18] VITALS: BP 142/102; PULSE 108; RESP 17; O2SAT 97
--- NOTE | 2025-03-29 16:25 | Physician Documentation ---
History of Present Illness ~ Stated Complaint: MED CLEARANCE OK to notify your PCP?: Yes Primary Medical Doctor: NONE Source: patient Mode of Arrival: POV Exam Limitations: no limitations HPI 39-year-old male presents for medical clearance to go to rehab for alcohol addiction. He states that he drinks a gal of vodka daily. He states that he has a bed ready for him at [facility] with a cross he is just requesting medical clearance and medications for the withdrawal process. He states that he has been through DTs before but has not had any seizures from them. Tetanus within 5 years?: Yes Medication Reconciliation Allergies: Coded Allergies: No Known Allergies (Unverified , 03/14/25) Scheduled Folic Acid* (Folic Acid*), 1 TAB PO DAILY Thiamine HCl (Vitamin B-1), 2 TAB PO DAILY Miscellaneous Medications Home Med List (No Home Medications), (Reported) Past Medical History Past Medical History: No Pertinent History Past Surgical History: noncontributory Patient History: Patient reports no known family medical history. Alcohol Use: Heavy Drug Use: marijuana Review of Systems All Other Systems at this time: Reviewed and Negative Physical Exam Vital Signs: RN Vital Signs have been reviewed: Yes Pulse Oximetry Reflects: adequate oxygenation Physical Exam General: Alert, no distress. HEENT: No injection, moist mucous membranes. Neck: Full range of motion. Respiratory: No respiratory distress, equal chest rise and fall. Chest: No accessory muscle use. Cardiovascular: Regular rate and rhythm. Gastrointestinal: Nondistended. Extremities: Normal range of motion, no deformity. Neurologic: Oriented x4. Psychiatric: Normal mood and affect. Skin: Normal color, warm and dry. Medical Decision Making Findings 31-year-old male presents for medical clearance and assistance with alcohol withdrawal. He has a bed waiting for him at [facility] but just needs a medical clearance. I sent a prescription for a Valium taper pack to help him with the withdrawal process. He has gone through DTs before but has not had a seizures. He should follow up with his primary care provider and return back here for any new or worsening symptoms. He has been educated he should avoid alcohol. Differential Dx:Considerations: Sub. Abuse -continuous, Sub. Abuse- intermittent, Personality disorder, Dehydration, Encephalopathy, Hepatitis, Thiamine deficiency Departure Disposition: 01 HOME / SELF CARE / HOMELESS Impression: Primary Impression: Alcohol withdrawal Condition: Stable Discharge Instructions: Alcohol Withdrawal Syndrome, [id number] Additional Instructions: You have been medically cleared to attend rehab. Please continue with the plan of going to [facility] for rehab. Avoid all alcohol, start the Valium taper pack once you start having withdrawal symptoms. You have been given a prescription to help with the withdrawal process for the next 4 days. Referrals: NO PRIMARY CARE PROVIDER (PCP) Prescriptions Diazepam (Valium) 10 Mg Tablet 1 TAB PO PRN PRN for anxiety for 4 Days, #10 TAB 0 Refills Day 1: take 1 tab by mouth every 6 hours. Day 2: take 1 tab by mouth every 8 hours. Day 3: take 1 tab by mouth every 12 hours. Day 4: Take 1 tab by mouth at nighttime. Prov: JOSY BAZZI 03/29/25 Education Educated: Patient Educated regarding: diagnosis, treatment, prognosis, need for follow up Signature Scribe Signature: . Attestation: Scribed for Emergency,Department by Josy Bazzi - KEIRA . 03/29/25 16:35 JOSY BAZZI Mar 29, 2025 16:25
[2025-03-29] MEDS ORDERED: DIAZ-546 PO (16:33)
[2025-03-29 16:42] VITALS: TEMP 98.4
== END 2025-03-29 16:43 | disposition home or self-care (01) ==
LOC: ER 16:07
DX: F10.239 Alcohol dependence with withdrawal, unspecified (principal); F12.90 Cannabis use, unspecified, uncomplicated; Y90.9 Presence of alcohol in blood, level not specified
CPT/HCPCS: 99283

== ENCOUNTER 2025-04-03 10:58 | Emergency (ER) | payer MEDICAID ==
[~2025-04-03] VITALS: Ht 177.8 cm; Wt 90.9 kg
[~2025-04-03 10:58] MED LIST changes: +DIAZ-546 PO
--- NOTE | 2025-04-03 11:25 | Physician Documentation ---
History of Present Illness ~ Chief Complaint: Medical Clearance Stated Complaint: MED CLEARANCE Time Seen by MD: 11:42 Primary Medical Doctor: NONE HPI 39 yr old male with long hx of alcohol abuse presents today requesting medical clearance to enter rehab tomorrow. He notes that he does have a script for Librium but is "holding onto them" until he enters rehab. To keep his withdrawal symptoms at bay, he is drinking small amounts of alcohol with most recent use 45 minutes ago. He denies CP, dyspnea. Does endorse nausea, shakiness, and anxiety. Reports that these current symptoms or typical of his withdrawal presentation. Additional note by Johnny Soto DO: I took over the care of this patient from previous physician. I reviewed any previous notes available, obtain my own history, review of systems and physical examination was performed by myself. This is a 39-year-old gentleman very well known to me, with a known history of alcohol abuse, ongoing but decreased drinking, comes in with a request for medical clearance for [facility] tomorrow. He states that he markedly gone down on his alcohol intoxication and treats his shakes with a very small doses of vodka. Reports mild nausea. Denies any other somatic complaints such as chest pain or difficulty breathing. His symptoms are similar to his prior withdrawals. Tetanus within 5 years?: Yes Medication Reconciliation Allergies: Coded Allergies: No Known Allergies (Unverified , 04/03/25) Scheduled Folic Acid* (Folic Acid*), 1 TAB PO DAILY Thiamine HCl (Vitamin B-1), 2 TAB PO DAILY Scheduled PRN Diazepam (Valium), 1 TAB PO PRN PRN for anxiety Miscellaneous Medications Home Med List (No Home Medications), (Reported) Past Medical History Past Medical History: No Pertinent History Past Surgical History: noncontributory Patient History: Patient reports no known family medical history. Alcohol Use: Heavy Drug Use: marijuana Review of Systems ROS 10 point review of systems was performed and unless noted above in HPI is negative for acute process/complaint. Physical Exam Vital Signs: Temperature: 97.8, Source: Temporal, Heart Rate: 140, Respiratory Rate: 18, BP: 169/91, Pulse Oximetry: 98, Weight: 90.910 Oxygen Flow Rate: 0 Physical Exam General: Alert, appears somewhat anxious. Neck: Full range of motion. Respiratory: Lungs clear, no respiratory distress. Chest: No accessory muscle use. Cardiovascular: Regular rate and rhythm, no murmurs. Tachycardic. Gastrointestinal: Soft, nontender, nondistended. Bowels sounds present. Extremities: Normal range of motion, no deformity. Neurologic: Oriented x4. Tremulous. Psychiatric: Normal mood and affect. Skin: Normal color, warm and dry. No edema, no ecchymosis. Progress Results/Orders Results/Orders Vital Signs 04/03/25 11:00 Temp 97.8 Pulse 140 Resp 18 B/P (MAP) 169/91 Pulse Ox 98 O2 Flow Rate 0 Laboratory Tests Test 04/03/25 11:28 White Blood Count 9.9 Red Blood Count 4.86 Hemoglobin 15.6 Hematocrit 45.6 Mean Corpuscular Volume 93.8 Mean Corpuscular Hemoglobin 32.2 H Mean Corpuscular Hemoglobin Concent 34.3 Red Cell Distribution Width 15.6 H Platelet Count 66 L Mean Platelet Volume 7.5 Neutrophils (%) (Auto) 77.2 H Lymphocytes (%) (Auto) 12.4 L Monocytes (%) (Auto) 9.4 Eosinophils (%) (Auto) 0.2 Basophils (%) (Auto) 0.8 Neutrophils # (Auto) 7.6 Lymphocytes # (Auto) 1.2 Monocytes # (Auto) 0.9 Eosinophils # (Auto) 0.0 Basophils # (Auto) 0.1 CBC Comment Sodium Level 137 Potassium Level 3.3 L Chloride Level 96 L Carbon Dioxide Level 22.2 L Anion Gap 19 H Blood Urea Nitrogen 10 Creatinine 0.96 Estimated GFR/1.73 m2 88 BUN/Creatinine Ratio 10.4 Glucose Level 88 Calcium Level 8.5 Total Bilirubin 1.1 H Aspartate Amino Transf (AST/SGOT) 208 H Alanine Aminotransferase (ALT/SGPT) 141 H Alkaline Phosphatase 93 Total Protein 7.5 Albumin 3.8 Globulin 3.7 Albumin/Globulin Ratio 1.0 L Lipase 50 Chemistry Comments Medical Decision Making Findings Facility Status: ED Holds, [facility] process The plan was discussed with the patient, who demonstrates clear understanding of the plan and is in agreement with the plan unless otherwise noted in the chart. All questions have been answered, all concerns were addressed unless otherwise documented. I was available throughout their ED stay for frequent reassessment and questions. Differential Diagnoses (considered and possible or likely): [Alcohol intoxication, alcohol withdrawal, alcoholism, electrolyte derangement, dehydration, nausea no as] ??Differential Diagnoses (considered and unlikely, not requiring evaluation currently): [Denies any chest pain or intra-abdominal pain] MDM Data Please see [facility] for the following: Independent Historians and external Records Review. Historian: [Patient] Independent Historians: ?[Record review] Medication Management: [Reviewed medication list] Social History and determinants: [Reviewed] Please see the body of the note for the following: Any independent interpretations of ECG, imaging studies. All vitals signs/haemodynamics, ordered tests were independently reviewed and interpreted by myself. Nursing triage complaint and vitals reviewed, additional nursing notes were reviewed as available and I agree unless otherwise noted or documented in contradiction in the chart Vital Signs: Independently reviewed Labs: Independently interpreted Imaging: Independently interpreted Old Medical Records: Independently reviewed, see [facility] for relevant summary and information Pulse Oximetry: [97%] interpreted as [normal on room air] by me [Bale Piler: [Regular Rate, Regular rhythm, no ectopy, NSR] reviewed and interpreted by me] Additionally notably showing: [Initially tachycardic, his symptoms have improved after Librium administration. CIWA had markedly improved. Laboratory workup notable for transaminitis and alcoholic fashion.] Tests considered but not ordered include: [Imaging does not appear to be necessary] Social Determinants of Health Impact: Patient was evaluated in [facility], or [facility] [place] to healthcare due to below par ratio of patient to medical providers. [] Comorbid Conditions Impacting Present Evaluation and Care/Treatment: [Alcoholism] Management Discussions with other Healthcare Providers: [None] Treatment and Disposition Medication Management (Given or considered): [Librium]. See EMR for details Consideration for Hospitalization/Escalation/Deescalation of Care: Admission for observation has been considered, [however the patient is able to tolerate p.o., their symptoms are controlled, they are able to rely on oral medications, and their chief complaint/diagnosis can be managed on outpatient basis.] ?ED Course:?[Patient is markedly improved. He does not want to be admitted. He does not want to miss out on his chance of going to rehab. His CIWA is low.] ?Shared decision making:?[Patient is hemodynamically stable for discharge home with follow with their primary care provider. [ ] Specific and cautious return precautions provided and discussed with full understanding. Any incidental fi ndings were also discussed and follow up recommendations given. [] All questions answered. Patient/family were able to verbalize back return precautions. Patient/family agree to plan. Copies of imaging and laboratory studies were provided.] Code status:?FULL Please see the full Electronic Medical Record for full details of nursing documentation, medications list, other records of complete past medical history and conditions, vital signs, laboratory studies, and any radiologic study interpretations by radiologists. Portions of this note were completed using Humansized dictation software and as a result there may exist minor errors in spelling. I have reviewed elements of past family and social history and agree as included in note. Departure Disposition: HOME / SELF CARE / HOMELESS Impression: Primary Impression: Alcohol withdrawal Condition: Improved Discharge Instructions: Alcohol Withdrawal Syndrome Additional Instructions: Your medically cleared for alcohol rehab at [place] Referrals: NO PRIMARY CARE PROVIDER (PCP) Education Educated: Patient Educated regarding: diagnosis, treatment, prognosis, need for follow up Signature Scribe Signature: no scribe Attestation: The note accurately reflects work and decisions made by me.Ansley Murry NP 04/03/25 11:25 This note accurately reflects clinical decisions, work performed by myself, DO KIARA Taveras HEIDI L NP Apr 03, 2025 11:25 JOHNNY SOTO DO Apr 03, 2025 12:31
[2025-04-03 11:36] LABS: BASOPHILS # (AUTO) 0.1 X10'3 (0-0.2); BASOPHILS % (AUTO) 0.8 % (0-1); EOSINOPHILS % (AUTO) 0.2 % (0-6); HEMATOCRIT 45.6 % (42.0-52.0); HEMOGLOBIN 15.6 g/dl (14.0-17.9); LYMPHOCYTES # (AUTO) 1.2 X10'3 (1.1-4.8); LYMPHOCYTES % (AUTO) 12.4 % (21-51); MEAN CORPUSCULAR HEMOGLOBIN 32.2 PG (27.0-31.0); MEAN CORPUSCULAR HGB CONC 34.3 g/dL (33.0-36.5); MEAN CORPUSCULAR VOLUME 93.8 FL (78-98); MEAN PLATELET VOLUME 7.5 FL (7.4-10.4); MONOCYTES # (AUTO) 0.9 X10'3 (0-0.9); MONOCYTES % (AUTO) 9.4 % (2-12); NEUTROPHILS # (AUTO) 7.6 X10'3 (1.8-7.7); NEUTROPHILS % (AUTO) 77.2 % (42-75); PLATELET COUNT 66 X10'3 (140-440); RED BLOOD COUNT 4.86 X10'6 (4.70-6.10); RED CELL DISTRIBUTION WIDTH 15.6 % (11.5-14.5); WHITE BLOOD COUNT 9.9 X10'3 (4.5-11.0)
[2025-04-03 11:48] LABS: ALANINE AMINOTRANSFERASE 141 U/L (12-78); ALBUMIN 3.8 G/DL (3.4-5.0); ALKALINE PHOSPHATASE 93 IU/L (46-116); ANION GAP 19 (8-16); ASPARTATE AMINO TRANSFERASE 208 U/L (10-37); BILIRUBIN,TOTAL 1.1 MG/DL (0.1-1.0); BLOOD UREA NITROGEN 10 MG/DL (7-18); BUN/CREATININE RATIO 10.4 (10.0-20.0); CALCIUM 8.5 MG/DL (8.5-10.1); CHLORIDE 96 MMOL/L (99-107); CREATININE 0.96 MG/DL (0.60-1.10); GLUCOSE 88 MG/DL (70-104); LIPASE 50 U/L (16-77); POTASSIUM 3.3 MMOL/L (3.5-5.1); SODIUM 137 MMOL/L (135-145); TOTAL CARBON DIOXIDE 22.2 MMOL/L (24-32); TOTAL PROTEIN 7.5 G/DL (6.4-8.2); eCRCL 108 ML/MIN; eGFR 88 ML/MIN
[2025-04-03] MEDS: chlordiazePOXIDE 25mg capsule PO ONE (14:04)
[2025-04-03 14:06] VITALS: BP 141/76; PULSE 83; RESP 16; TEMP 98; O2SAT 100
== END 2025-04-03 14:07 | disposition home or self-care (01) ==
LOC: ER 10:58
DX: F10.129 Alcohol abuse with intoxication, unspecified (principal); F41.9 Anxiety disorder, unspecified; F12.90 Cannabis use, unspecified, uncomplicated; Z79.899 Other long term (current) drug therapy; Y90.9 Presence of alcohol in blood, level not specified
CPT/HCPCS: 36415; 80053; 83690; 85025; 99284

== ENCOUNTER 2025-05-19 20:19 | Inpatient (IN) | payer MEDICAID, OTHER ==
[~2025-05-19] VITALS: Ht 175.3 cm; Wt 76.3 kg
[~2025-05-19 20:19] MED LIST changes: -FOLI0.4T6 PO
--- NOTE | 2025-05-19 20:41 | ELECTROCARDIOGRAPH REPORT ---
[facility] Test Date: 2025-05-19 Test Time: 20:34:56 Pat Name: BARBARA BOLAÑOS Department: EMERGENCY ROOM Room: ORTHO [facility] Gender: M Edge Setter: MONICA : 1985 Requested By: HASMUKH DA SILVA Order Number: [id number] Reading MD: Dr. Javier Villa Measurements Intervals [place] Rate: 124 P: 22 ND: 125 QRS: 73 QRSD: 76 T: 62 QT: 304 QTc: 437 Interpretive Statements Sinus tachycardia Ventricular premature complex Aberrant conduction of SV complex(es) Electronically Signed On 05-20-2025 6:12:[address] Javier Villa Please click the below link to view image of tracing.
--- NOTE | 2025-05-19 21:02 | Physician Documentation ---
History of Present Illness ~ Chief Complaint: ETOH Stated Complaint: SOB Time Seen by MD: 20:39 Primary Medical Doctor: NONE HPI 49-year-old male who presents to the ED complaining of alcohol withdrawals. States the last intake of alcohol was earlier today states that he normally drinks approximately a 5th a day. Says he has been on a binge drinking for the last 10 days. This is a can not go back to rehab until he has reached the 30 day elana. Requesting to be treated for alcohol withdrawal and bridged to sobriety in the outpatient setting Day of Onset: May 19, 2025 Tetanus within 5 years?: Yes Medication Reconciliation Allergies: Coded Allergies: No Known Allergies (Unverified , 05/19/25) Scheduled Folic Acid* (Folic Acid*), 1 MG PO DAILY Pantoprazole Sodium (Pantoprazole Sodium), 40 MG PO BKF [thiamine tablet], 100 MG PO DAILY Discontinued Medications Chlordiazepoxide Hcl (Librium), 2 CAP PO HSPRN PRN for anxiety Discontinued Reason: patient no longer taking Diazepam (Valium), 1 TAB PO PRN PRN for anxiety Discontinued Reason: patient no longer taking Home Med List (No Home Medications), (Reported) Discontinued Reason: patient no longer taking Home Med List (No Home Medications), (Reported) Thiamine HCl (Vitamin B-1), 2 TAB PO DAILY Discontinued Reason: patient no longer taking Past Medical History Past Medical History: No Pertinent History Past Surgical History: noncontributory Patient History: Patient reports no known family medical history. Alcohol Use: Heavy Drug Use: marijuana Physical Exam Vital Signs: Temperature: 98.6, Source: Temporal, Heart Rate: 124, Respiratory Rate: 20, BP: 146/62, Pulse Oximetry: 98, Weight: 76.300 Progress Results/Orders Results/Orders Orders - CHLOÉ SAMANO CDL TRUCK DRIVER Po Challenge (05/19/25 22:19) Gait Test (05/19/25 22:19) Recheck Vital Signs (05/19/25 22:19) Reassess Pt For Discharge (05/19/25 22:19) Completed Orders - CHLOÉ SAMANO CDL TRUCK DRIVER Normal Saline 1000ml (0.9% Sodium Chlori (05/19/25 21:05) Diazepam Inj (Valium Inj) (05/19/25 21:05) Folic Acid Inj. (Folic Acid Inj.) (05/19/25 21:05) Thiamine Inj. (Thiamine Inj.) (05/19/25 21:05) Magnesium Sulf-Water 2g/50ml (Magnesium (05/19/25 21:05) Potassium Cl Sr Tablet (K-Dur Tablet) (05/19/25 21:37) Ondansetron Inj. (Zofran 4mg/2ml Vial) (05/19/25 21:50) Vital Signs 05/19/25 05/19/25 05/19/25 05/19/25 20:38 20:38 21:01 22:00 Temp 98.6 98.6 98.6 98.6 Pulse 124 124 119 102 Resp 20 20 17 13 B/P (MAP) 146/62 146/64 (91) 163/111 (128) 156/95 (115) Pulse Ox 98 98 94 96 05/19/25 05/20/25 05/20/25 23:00 00:04 00:13 Temp 98.6 98.6 Pulse 79 104 Resp 22 B/P (MAP) 126/81 (96) 152/112 (125) Pulse Ox 97 98 Laboratory Tests Test 05/19/25 21:03 05/20/25 00:18 White Blood Count 8.9 Red Blood Count 5.42 Hemoglobin 17.3 Hematocrit 50.0 Mean Corpuscular Volume 92.2 Mean Corpuscular Hemoglobin 31.9 H Mean Corpuscular Hemoglobin Concent 34.6 Red Cell Distribution Width 13.3 Platelet Count 123 L Mean Platelet Volume 8.2 Neutrophils (%) (Auto) 42.9 Lymphocytes (%) (Auto) 42.7 Monocytes (%) (Auto) 11.9 Eosinophils (%) (Auto) 1.3 Basophils (%) (Auto) 1.2 H Neutrophils # (Auto) 3.8 Lymphocytes # (Auto) 3.8 Monocytes # (Auto) 1.1 H Eosinophils # (Auto) 0.1 Basophils # (Auto) 0.1 CBC Comment Sodium Level 145 Potassium Level 3.2 L Chloride Level 102 Carbon Dioxide Level 28.4 Anion Gap 15 Blood Urea Nitrogen 5 L Creatinine 1.02 Estimated GFR/1.73 m2 82 BUN/Creatinine Ratio 4.9 L Glucose Level 95 Calcium Level 8.4 L Total Bilirubin 1.0 Aspartate Amino Transf (AST/SGOT) 159 H Alanine Aminotransferase (ALT/SGPT) 161 H Alkaline Phosphatase 93 Total Protein 7.8 Albumin 4.2 Globulin 3.6 Albumin/Globulin Ratio 1.2 Chemistry Comments Ethyl Alcohol Level 350 H Urine Specimen Description Non-specified Urine Color Yellow Urine Clarity Clear Urine pH 7.0 Urine Specific [place] 1.010 Urine Protein Negative Urine Glucose (UA) Negative Urine Ketones Negative Urine Occult Blood Negative Urine Nitrite Negative Urine Bilirubin Negative Urine Urobilinogen 1.0 Urine Leukocyte Esterase Negative Urine Culture Indicated Not ind Volume Urine Centrifuged 10 ml Urine Comment Urine Opiates Screen Negative Urine Methadone Screen Negative Urine Fentanyl Screen Negative Urine Barbiturates Screen Negative Urine Phencyclidine Screen Negative Urine Amphetamines Screen Negative Urine Benzodiazepines Screen Negative Urine Cocaine Screen Negative Urine Cannabinoids Screen Positive Drug Screen Comment Medical Decision Making Findings This patient presents with the beginnings of what was thought to be alcohol withdrawal./ his alcohol level came back at over 300 this is probably close to his son normal baseline based on the level of alcohol intake he reports daily I did provide him with folic acid thiamine magnesium fluids and will one time dose of Valium along with sending him a bridging medication to utilize toward sobriety. Dr. Angel assuming care of patient: Patient continues to vomit despite antiemetics and along with significant alcohol intoxication and possible withdrawal symptoms as he is not able to tolerate p.o. he is considered high risk and we will admit Differential Dx:Considerations: Include: Intoxication-Alcohol, Intoxication- Other drug, Personality disorder, Substance abuse disorder, Acute delirium, Closed head injury, Cervical spine injury, Skull fracture, Fracture(s), Abrasion, Contusion, Foreign body, Hematoma, Laceration, Alcohol withdrawl syndrom, Encephalopathy, Hepatitis, Medically stable, Other Departure Disposition: 01 HOME / SELF CARE / HOMELESS Admitted to Inpatient Unit: yes, to hospitalist Impression: Primary Impression: Alcohol withdrawal Additional Impression: Vomiting Condition: Guarded Referrals: NO PRIMARY CARE PROVIDER (PCP) Prescriptions Pantoprazole Sodium (Pantoprazole Sodium) 40 Mg Tablet. 40 MG PO BKF for 30 Days, #30 TAB.SR Prov: GROVER GRUBBS MD 05/22/25 [thiamine tablet] 100 MG TABLET No Conflict Check 100 MG PO DAILY for 30 Days, #30 Prov: GROVER GRUBBS MD 05/22/25 Folic Acid* (Folic Acid*) Y Tab 1 MG PO DAILY for 30 Days, #30 TAB Prov: GROVER GRUBBS MD 05/22/25 Signature Scribe Signature: e Attestation: The note accurately reflects work and decisions made by me.Javi Angel MD 05/20/25 02:47 Scribed for Chloé Samano Catalogue Librarian by Chloé Samano - KEIRA . 05/19/25 22:11 CHLOÉ SAMANO NP May 19, 2025 21:02 JAVI ANGEL MD May 20, 2025 00:08
[2025-05-19 21:10] LABS: MEAN PLATELET VOLUME 8.2 FL (7.4-10.4); RED CELL DISTRIBUTION WIDTH 13.3 % (11.5-14.5)
[2025-05-19 21:34] LABS: CREATININE 1.02 MG/DL (0.60-1.10); TOTAL CARBON DIOXIDE 28.4 MMOL/L (24-32); eCRCL 98 ML/MIN; eGFR 82 ML/MIN
[2025-05-19] MEDS: potassium Cl 20 mEq SR tablet PO STA (21:44)
[2025-05-19] MEDS: diazepam inj 5 MG/ML inj. IV ONE (21:45)
[2025-05-19 21:46] LABS: ETHANOL 350 MG/DL (<10)
[2025-05-19] MEDS: thiamine 100mg/ml 2ml inj. IV ONE (21:48)
[2025-05-19] MEDS: normal saline 1000ML IV soln IVB ONE (21:58)
[2025-05-19] MEDS ORDERED: CHLO25CA10 PO (22:04)
[2025-05-19] MEDS: magnesium sulf-water 2g/50mL 50 ML IV ONE (22:26)
[2025-05-19] MEDS: folic acid 1mg/0.2ml inj IV ONE (22:26)
[2025-05-19] MEDS: ondansetron/PF 4mg/2ml inj IV ONE (22:31)
[2025-05-20] VITALS (7 sets, daily range): BP systolic 113–137; BP diastolic 70–86; PULSE 65–95; RESP 16–18; TEMP 97.1–98.2; O2SAT 93–99
[2025-05-20] MEDS: ondansetron/PF 4mg/2ml inj IV ONE (00:19)
[2025-05-20] MEDS ORDERED: mag hydrox/Alum hydrox/simeth 30ml oral suspension PO PRN (00:45)
[2025-05-20] MEDS ORDERED: magnesium sulf-water 4G/100mL 100 ML IV PRN (00:45)
[2025-05-20] MEDS ORDERED: potassium Cl 20 mEq SR tablet PO PRN ×2 (00:45)
[2025-05-20] MEDS ORDERED: magnesium hydroxide 30ml (MOM) UD suspension PO PRN (00:45)
[2025-05-20] MEDS ORDERED: dextrose 50%-water 50ml dispensing syringe IV PRN (00:45)
[2025-05-20] MEDS ORDERED: haloperidol lactate 5mg/ml inj IM PRN (00:45)
[2025-05-20] MEDS ORDERED: magnesium Cl slow-release 64mg tablet PO PRN (00:45)
[2025-05-20] MEDS ORDERED: magnesium sulf-water 2g/50mL 50 ML IV PRN (00:45)
[2025-05-20] MEDS ORDERED: ondansetron/PF 4mg/2ml inj IV PRN (00:45)
[2025-05-20] MEDS ORDERED: potassium Cl 40MEQ/1/2NS 520ml 520 ML IV PRN (00:45)
[2025-05-20 01:08] LABS: LEUKOCYTE ESTERASE ,URINE NEGATIVE (Neg); NITRITES, URINE NEGATIVE (Neg); OCCULT BLOOD,URINE NEGATIVE (Neg)
[2025-05-20 01:12] LABS: UA COLLECTION TYPE NON-SPECIFIED
--- NOTE | 2025-05-20 01:13 | HISTORY AND PHYSICAL-Residence ---
History & Physical Providers to Resident Creating Document: [facility]I [facility] ~ History of Present Illness Primary Medical Doctor: NONE Reason for Admit\Complaint: Alcohol intoxication History of Present Illness This is a 39-year-old male patient with a past medical history of alcohol use disorder, ADHD, presented to the emergency department for multiple episodes of vomiting and epigastric pain. The patient has been drinking 1/5 of vodka daily for the last two weeks after being discharged from an alcohol rehab facility where he stayed for 35 days. For the last few days he has been having multiple episodes of vomiting and is not being able to tolerate oral diet. Patient also complains of intermittent chest pain and shortness of breath when he is laying down, not present at this moment. There is no fever, cough or other respiratory symptoms. Patient is motivated to abstain from alcohol but states that he is unable to because of his current homeless situation and alcoholic environment. Allergies: Coded Allergies: No Known Allergies (Unverified , 05/19/25) Home Medications Home Medications Active Librium (Chlordiazepoxide Hcl) 25 Mg Capsule 2 Cap PO HSPRN PRN 1 Days Valium (Diazepam) 10 Mg Tablet 1 Tab PO PRN PRN 4 Days Day 1: take 1 tab by mouth every 6 hours. Day 2: take 1 tab by mouth every 8 hours. Day 3: take 1 tab by mouth every 12 hours. Day 4: Take 1 tab by mouth at nighttime. Vitamin B-1 (Thiamine HCl) 50 Mg Tablet 2 Tab PO DAILY 30 Days Reported No Home Medications (Home Med List) Each Past Medical History Past Medical History Alcohol use disorder ADHD Past Surgical History Surgical History Comment Reconstructive face surgery after dog bite Family History Family History: Patient reports no known family medical history. Past Social History Social History Comment Patient smokes five cigarettes daily since he was 16-year-old. Patient started to drink alcohol when he was 21-year-old but has been abusing from it for the last five years. Patient used marijuana and denies any other drugs. Patient is homeless, lives in a truck with his mother. 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 Smoking: Less than 1 pack/day Alcohol Use: Heavy Drug Use: Marijuana Lives with: Mother Lives In: Homeless Occupation: unemployed ROS Constitutional: Reports: malaise, weakness Eyes: Reports: no symptoms reported ENT: Reports: no symptoms reported Respiratory: Reports: shortness of breath Cardiovascular: Reports: chest pain Gastrointestinal: Reports: abdominal pain, nausea, vomiting Genitourinary: Reports: no symptoms reported Male Genitalia: Reports: no symptoms reported Neurological: Reports: problems walking (From alcohol intoxication) Musculoskeletal: Reports: no symptoms reported Integumentary: Reports: no symptoms reported Allergic/Immunologic: Reports: no symptoms reported Hematologic/Lymphatic: Reports: no symptoms reported Endocrine: Reports: no symptoms reported Psychiatric: Reports: anxiety Exam Vitals: Vital Signs Date Time Temp Pulse Resp B/P (MAP) Pulse Ox O2 Delivery O2 Flow Rate FiO2 05/20/25 00:13 98.6 104 22 152/112 (125) 98 General: General: Awake and Alert, diffuse tremors. Mild discomfort noted. Strong alcohol other. HEENT: Conjunctiva pink, Sclera clear, Mucus Membranes dry. Neck: Supple without masses and tenderness. Resp: Unlabored. Lungs clear to auscultation bilaterally. Heart: Regular Rate and rhythm, normal S1 and S2 without murmur, rub or gallop. Abdomen: Soft, nondistended, mildly tender in the epigastric region. No organomegaly. Normal bowel sounds. No guarding or rebound. Extremities: No cyanosis,clubbing or edema. Skin: Warm and Dry. Diagnostic Data Last Recorded Lab Results: 05/19/25210205/19/252102 Counseling Services Smoking & Tobacco Cessation: 3-10 Minutes (Patient instructed to abstain from tobacco use) Advance Care Planning Advanced Care plannin - 30 Minutes (Patient wishes to be full code) Additional Plan Assessment This is a 39-year-old male patient with a past medical history of alcohol use disorder, ADHD, presented to the emergency department for epigastric pain and multiple episodes of vomiting secondary to alcohol intoxication. Patient is being treated with IV fluids, Zofran and started on moderate alcohol withdrawal protocol. Pending social service and substance use navigator. Plan Alcohol intoxication Alcohol level 350, ASL 159, ALT 161, normal bilirubin Received 2000 mL of normal saline Started on lactated Ringer at 100 mL/hr Zofran + Reglan p.r.n. Moderate alcohol withdrawal protocol Ordered full liquid diet. Progress as tolerated. Ordered amylase, lipase, PT, PTT Ordered drug screen Ordered social service and substance use navigator Intermittent chest pain and shortness of breath Most likely secondary to alcohol intoxication Heart score 0 point EKG: Sinus tachycardia, no ischemic signs Ordered troponin, chest x-ray, BNP Mild hypokalemia K 3.2 Replacement per protocol Monitor daily Code Status: Full code DVT prophylaxis: Enoxaparin Analgesia/sedation: Morphine Line/tube: PIV GI prophylaxis: Pantoprazole Nutrition: Full liquid diet Disposition: Admit to ortho floor. Attending Addendum Pt seen and discussed with the resident team I agreed with the assessment and plan above Suggest to add Protonix Also get Liver US Alcohol abuse assistance /Psych/Soc work consult We will follow Thank you Date of Service: May 20, 2025 Billing Provider: LUIS VILLAVICENCIO MD, LUCAS, RES May 20, 2025 01:13 LUIS VILLAVICENCIO MD May 20, 2025 02:35
[2025-05-20 01:18] LABS: MEAN PLATELET VOLUME 8.0 FL (7.4-10.4); RED CELL DISTRIBUTION WIDTH 13.5 % (11.5-14.5)
[2025-05-20] MEDS: ringers solution, lacted 1,000 ML IV SCH (01:24)
[2025-05-20 01:36] LABS: CREATININE 0.81 MG/DL (0.60-1.10); TOTAL CARBON DIOXIDE 30.8 MMOL/L (24-32); eCRCL 124 ML/MIN; eGFR > 90 ML/MIN
[2025-05-20] MEDS: diazepam inj 5 MG/ML inj. IV PRN (01:58)
[2025-05-20] MEDS: metoclopramide 5 mg/ml inj IV PRN (01:58)
[2025-05-20 02:26] LABS: PRO BRAIN NATRIURETIC PEPTIDE < 30 PG/ML (0-125)
[2025-05-20 02:37] LABS: URINE AMPHETAMINE SCREEN NEGATIVE (Neg); URINE BARBITUATE SCREEN NEGATIVE (Neg); URINE BENZODIAZEPINES SCREEN NEGATIVE (Neg); URINE CANNABINOID SCREEN POSITIVE (Neg); URINE COCAINE SCREEN NEGATIVE (Neg); URINE METHADONE SCREEN NEGATIVE (Neg); URINE OPIATE SCREEN NEGATIVE (Neg); URINE PHENCYCLIDINE SCREEN NEGATIVE (Neg)
--- NOTE | 2025-05-20 04:09 | RADIOLOGY REPORT ---
CHEST RADIOGRAPH Indication: INTERMITTENT SHORTNESS OF BREATH Technique: Frontal and lateral view of the chest was obtained Comparison: DI CHEST,SINGLE VIEW on DOS: 03/15/25 FINDINGS: Lines and Tubes: None Lungs: Clear Pleura: No effusion. No pneumothorax. Cardiomediastinal contours: Unremarkable Bones: Unremarkable IMPRESSION: 1. No evidence of acute disease.
[2025-05-20 06:28] LABS: APTT 29 SECONDS (22-32); INR 1.0 INR
[2025-05-20] MEDS: K and/or MAG REPLACEMENT MC SCH (08:00)
[2025-05-20] MEDS: docusate sod 100mg capsule PO SCH (08:00)
[2025-05-20] MEDS: thiamine 100mg/ml 2ml inj. IV SCH (09:56)
[2025-05-20] MEDS: folic acid 1mg/0.2ml inj IV SCH (09:59)
[2025-05-20 15:46] LABS: MEAN PLATELET VOLUME 8.2 FL (7.4-10.4); RED CELL DISTRIBUTION WIDTH 13.3 % (11.5-14.5)
[2025-05-20 15:57] LABS: OCCULT BLOOD STOOL NEGATIVE (Neg)
[2025-05-20 16:00] LABS: CREATININE 0.89 MG/DL (0.60-1.10); TOTAL CARBON DIOXIDE 33.2 MMOL/L (24-32); eCRCL 113 ML/MIN; eGFR > 90 ML/MIN
[2025-05-20] MEDS: pantoprazole 40mg Tablet.DR PO ONE (17:37)
--- NOTE | 2025-05-20 18:21 | PROGRESS NOTE ---
Daily Progress Note Providers to CC ~ Antibiotic Timeout Antibiotic Ordered?: No Subjective Patient was seen in presence of nursing staff day today. Patient lives in trailer with his mom. His son is from him and recently fired from his job. He feels life is very rough currently for him. Mentioned to nursing staff that he is having epigastric pain and noticed liquid brown almost black diarrhea stools. Objective Vital Signs Date Time Temp Pulse Resp B/P (MAP) Pulse Ox O2 Delivery O2 Flow Rate FiO2 05/20/25 10:00 97.1 87 16 133/82 (99) 98 Room Air Result Diagram: 05/20/25 1532 05/20/25 1532 General-patient not in any acute distress, alert awake oriented, ill-appearing HEENT-atraumatic normocephalic, neck supple without elevated JVD, no thyromegaly or carotid bruit. No lymphadenopathy bilaterally. Eyes-no icterus or pallor seen in eyes Chest-clear to auscultation bilaterally, breathing nonlabored no tachypnea, no wheezing, no crepitation, no crackles. Heart-S1-S2 normal, regular heart rate no murmur Abdomen bowel sounds positive on auscultation, soft nondistended nontender no guarding, no rigidity Skin no active skin rash Neurology-grossly intact, nonfocal alert awake oriented Extremity- no pedal edema able to move all 4 extremities Psychiatry - patient is not confused or agitated cooperated during physical examination Coagulation Studies Laboratory Tests Test 05/20/25 05:37 Prothrombin Time 10.4 SECONDS (9.0-12.0) INR International Normalized Ratio 1.0 INR Activated Partial Thromboplast Time 29 SECONDS (22-32) Coagulation Comments Problem\Assessment\Plan This is a 39-year-old male patient with a past medical history of alcohol use disorder, ADHD, presented to the emergency department for epigastric pain and multiple episodes of vomiting secondary to alcohol intoxication. Patient is being treated with IV fluids, Zofran and started on moderate alcohol withdrawal protocol. social service and substance use navigator aware. Alcohol intoxication Alcohol level 350, ASL 159, ALT 161, normal bilirubin Received 2000 mL of normal saline Started on lactated Ringer at 100 mL/hr Zofran + Reglan p.r.n. Moderate alcohol withdrawal protocol Ordered full liquid diet. Progress as tolerated. amylase 48, lipase 43, normal PT, PTT drug screen positive for cannabinoids [place] service and substance use navigator aware and we will evaluate the patient Intermittent chest pain and shortness of breath Most likely secondary to alcohol intoxication Heart score 0 point EKG: Sinus tachycardia, no ischemic signs troponin 24 , reviewed chest x-ray, BNP 30 Mild hypokalemia- resolved Replacement per protocol Monitor daily Code Status: Full code DVT prophylaxis: Enoxaparin Analgesia/sedation: Morphine Line/tube: PIV GI prophylaxis: Pantoprazole Nutrition: Full liquid diet Patient's current condition is guarded we will continue to follow patient in a.m. Date of Service: May 20, 2025 Billing Provider: GROVER GRUBBS MD Common Visit Codes: [id number] INP/OBS CARE(HIGH) GROVER GRUBBS MD May 20, 2025 18:21
[2025-05-20] MEDS: enoxaparin 40mg/0.4ml syringe SQ SCH (19:54)
[2025-05-21 06:00] VITALS: BP 108/68; PULSE 62; RESP 20; TEMP 98.5; O2SAT 94
[2025-05-21 06:47] LABS: MEAN PLATELET VOLUME 8.8 FL (7.4-10.4)
[2025-05-21 06:49] LABS: RED CELL DISTRIBUTION WIDTH 13.2 % (11.5-14.5)
[2025-05-21 07:04] LABS: CREATININE 0.78 MG/DL (0.60-1.10); TOTAL CARBON DIOXIDE 31.3 MMOL/L (24-32); eCRCL 128 ML/MIN; eGFR > 90 ML/MIN
[2025-05-21 10:00] VITALS: BP 131/86; PULSE 71; RESP 15; TEMP 98; O2SAT 99
[2025-05-21] MEDS: pantoprazole 40mg Tablet.DR PO SCH (10:27)
[2025-05-21 18:00] VITALS: BP 130/77; PULSE 62; RESP 16; TEMP 97.4; O2SAT 98
--- NOTE | 2025-05-21 18:57 | PROGRESS NOTE ---
Daily Progress Note Providers to CC ~ Antibiotic Timeout Antibiotic Ordered?: No Subjective Patient was seen in his room he is feeling better wanted to get real food no nausea vomiting. Patient is started on regular diet today. Detailed counseling done regarding risk and consequences of alcohol intoxication with patient in visit. Objective Vital Signs Date Time Temp Pulse Resp B/P (MAP) Pulse Ox O2 Delivery O2 Flow Rate FiO2 05/21/25 10:00 98.0 71 15 131/86 (101) 99 Room Air Result Diagram: 05/21/2562805/21/25628 General-patient not in any acute distress, alert awake oriented, ill-appearing HEENT-atraumatic normocephalic, neck supple without elevated JVD, no thyromegaly or carotid bruit. No lymphadenopathy bilaterally. Eyes-no icterus or pallor seen in eyes Chest-clear to auscultation bilaterally, breathing nonlabored no tachypnea, no wheezing, no crepitation, no crackles. Heart-S1-S2 normal, regular heart rate no murmur Abdomen bowel sounds positive on auscultation, soft nondistended nontender no guarding, no rigidity Skin no active skin rash Neurology-grossly intact, nonfocal alert awake oriented Extremity- no pedal edema able to move all 4 extremities Psychiatry - patient is not confused or agitated cooperated during physical examination Coagulation Studies Laboratory Tests Test 05/20/25 05:37 Prothrombin Time 10.4 SECONDS (9.0-12.0) INR International Normalized Ratio 1.0 INR Activated Partial Thromboplast Time 29 SECONDS (22-32) Coagulation Comments Problem\Assessment\Plan This is a 39-year-old male patient with a past medical history of alcohol use disorder, ADHD, presented to the emergency department for epigastric pain and multiple episodes of vomiting secondary to alcohol intoxication. Patient is being treated with IV fluids, Zofran and started on moderate alcohol withdrawal protocol. social service and substance use navigator aware. Alcohol intoxication Alcohol level 350, ASL 159, ALT 161, normal bilirubin Received 2000 mL of normal saline Started on lactated Ringer at 100 mL/hr Zofran + Reglan p.r.n. Moderate alcohol withdrawal protocol Ordered full liquid diet. Progress as tolerated. amylase 48, lipase 43, normal PT, PTT drug screen positive for cannabinoids social service and substance use navigator aware and we will evaluate the patient Intermittent chest pain and shortness of breath Most likely secondary to alcohol intoxication Heart score 0 point EKG: Sinus tachycardia, no ischemic signs troponin 24 , reviewed chest x-ray, BNP 30 Mild hypokalemia- resolved Replacement per protocol Monitor daily Code Status: Full code DVT prophylaxis: Enoxaparin Analgesia/sedation: Morphine Line/tube: PIV GI prophylaxis: Pantoprazole Nutrition: Full liquid diet Patient's current condition is guarded we will continue to follow patient in a.m. Date of Service: May 21, 2025 Billing Provider: GROVER GRUBBS MD Common Visit Codes: [id number] INP/OBS CARE(HIGH) GROVER GRUBBS MD May 21, 2025 18:57
[2025-05-21 20:00] VITALS: RESP 16; O2SAT 98
[2025-05-21 22:46] VITALS: BP 131/71; PULSE 61; RESP 20; TEMP 98.9; O2SAT 98
[2025-05-22 05:41] LABS: MEAN PLATELET VOLUME 9.7 FL (7.4-10.4); RED CELL DISTRIBUTION WIDTH 13.4 % (11.5-14.5)
[2025-05-22 06:00] VITALS: BP 96/49; PULSE 61; RESP 21; TEMP 98.5; O2SAT 99
[2025-05-22 06:07] LABS: CREATININE 0.82 MG/DL (0.60-1.10); TOTAL CARBON DIOXIDE 32.0 MMOL/L (24-32); eCRCL 122 ML/MIN; eGFR > 90 ML/MIN
[2025-05-22] MEDS ORDERED: FOLI1TAB27 PO (09:06)
[2025-05-22] MEDS ORDERED: PANT40TA54 PO (09:06)
[2025-05-22] MEDS ORDERED: thiamine tablet PO (09:06)
[2025-05-22 10:00] VITALS: BP 105/65; PULSE 60; RESP 14; TEMP 98.5; O2SAT 99
--- NOTE | 2025-05-22 16:50 | DISCHARGE SUMMARY ---
Discharge Summary Providers to CC ~ Discharge Summary Admission Diagnosis: ALCOHOL INTOXICATION Hospital Course DATE OF ADMISSION: May 20, 2025 DATE OF DISCHARGE: May 22, 2025 CBC testing done on May 22, 2025 WBC 6.3 hemoglobin 15.0 hematocrit 43.7, platelet count 68, toxicology screen positive for cannabinoids, CMP done on May 22, 2025 sodium 141 potassium 3.7 creatinine 0.82 GFR 90 total bilirubin 0.8 AST 104 ALT 135, procalcitonin 0.05, lipase 43 CHEST,TWO VIEWSIMPRESSION: 1. No evidence of acute disease. Discharge Diagnosis\Comment: Alcohol intoxication, abnormal LFT due to alcohol abuse, GERD, Mild hypokalemia- resolved Operations\Procedures: None Consultants: None Complications: None Condition on DC: Stable New Medications: Pantoprazole Sodium (Pantoprazole Sodium) 40 Mg Tablet.dr 40 MG PO BKF for 30 Days, #30 TAB.SR Folic Acid* (Folic Acid*) Y Tab 1 MG PO DAILY for 30 Days, #30 TAB [thiamine tablet] () 100 MG TABLET 100 MG PO DAILY for 30 Days, #30 Discontinued Medications: Home Med List (No Home Medications) Each Discharge Summary: This is a 39-year-old male patient with a past medical history of alcohol use disorder, ADHD, presented to the emergency department for epigastric pain and multiple episodes of vomiting secondary to alcohol intoxication. Patient is being treated with IV fluids, Zofran and started on moderate alcohol withdrawal protocol. social service and substance use navigator aware. During hospitalization patient was treated for Alcohol intoxication Alcohol level 350, ASL 159, ALT 161, normal bilirubin Received 2000 mL of normal saline Started on lactated Ringer at 100 mL/hr Zofran + Reglan p.r.n. Moderate alcohol withdrawal protocol Ordered full liquid diet. Progress as tolerated. amylase 48, lipase 43, normal PT, PTT drug screen positive for cannabinoids social service and substance use navigator aware and we will evaluate the patient Detailed counseling done regarding risk and consequences of alcohol intoxication with patient in visit. Intermittent chest pain and shortness of breath, likely GERD Most likely secondary to alcohol intoxication Heart score 0 point EKG: Sinus tachycardia, no ischemic signs troponin 24 , reviewed chest x-ray, BNP 30 Mild hypokalemia- resolved Replacement per protocol Monitored daily Code Status: Full code DVT prophylaxis: Enoxaparin Analgesia/sedation: Morphine Line/tube: PIV GI prophylaxis: Pantoprazole Nutrition: Full liquid diet then advanced to regular diet Patient is feeling better she has been afebrile and getting discharged home in stable condition. Patient is seen and examined on the day of discharge. All labs, diagnostic workup and discharge plan discussed with patient and family members in detail before her discharge. All questions and queries answered to the best of my professional medical knowledge. I heard patient's concerns and address appropriately. Discharge instructions provided to the patientPATIENT NEEDS FOLLOW-UP WITH PRIMARY CARE PHYSICIAN IN OUTPATIENT SETTING IN ONE WEEK, STRONGLY RECOMMENDED TO JOIN ALCOHOL ANONYMOUS PROGRAM IN ALCOHOL CESSATION RECOMMENDED. PLEASE PROVIDE FALL PRECAUTIONS DOCUMENT ACTIVITY TOLERATED General-patient not in any acute distress, alert awake oriented, ill-appearing HEENT-atraumatic normocephalic, neck supple without elevated JVD, no thyromegaly or carotid bruit. No lymphadenopathy bilaterally. Eyes-no icterus or pallor seen in eyes Chest-clear to auscultation bilaterally, breathing nonlabored no tachypnea, no wheezing, no crepitation, no crackles. Heart-S1-S2 normal, regular heart rate no murmur Abdomen bowel sounds positive on auscultation, soft nondistended nontender no guarding, no rigidity Skin no active skin rash Neurology-grossly intact, nonfocal alert awake oriented Extremity- no pedal edema able to move all 4 extremities Psychiatry - patient is not confused or agitated cooperated during physical examination *Problems/Diagnosis: (1) Alcohol withdrawal Status: Acute Total Time Spent on D/C: > 30 Minutes Date of Service: May 22, 2025 Billing Provider: GROVER GRUBBS MD Common Visit Codes: [id number] DISCH DAY >30min GROVER GRUBBS MD May 22, 2025 16:49
== END 2025-05-22 11:51 | disposition home or self-care (01) | DRG 425 ==
LOC: ER 20:20 → ED HOLD 05-20 00:18 → UNDOADMIN 05-20 00:18 → ED HOLD 05-20 00:19 → ORTHO 4S 05-20 01:40
PROVIDERS: ADMIT Internal Medicine; ATTEND Internal Medicine
DX: E87.6 Hypokalemia (principal); F10.129 Alcohol abuse with intoxication, unspecified; F10.139 Alcohol abuse with withdrawal, unspecified; F90.9 Attention-deficit hyperactivity disorder, unspecified type; F17.210 Nicotine dependence, cigarettes, uncomplicated; Z56.0 Unemployment, unspecified; Z59.00 Homelessness unspecified; Y90.8 Blood alcohol level of 240 mg/100 ml or more; R00.0 Tachycardia, unspecified; K21.9 Gastro-esophageal reflux disease without esophagitis
CPT/HCPCS: 36415; 71046; 80053; 80305; 80320; 81003; 82150; 82272; 83605; 83690; 83735; 83880; 84132; 84145; 84484; 85025; 85610; 85730; 87081; 93005; 96361; 96365; 96375; 99285; A4615; G0378; J2405; J2470; J2765; J3360; J3411; J3490; J7030; J7120

== ENCOUNTER 2025-06-01 18:04 | Emergency (ER) | payer MEDICAID ==
[~2025-06-01] VITALS: Ht 175.3 cm; Wt 82.7 kg
[~2025-06-01 18:04] MED LIST changes: -DIAZ-546 PO; +FOLI1TAB27 PO; -NO HOME MEDS; +PANT40TA54 PO; -THIA50TA10 PO; +thiamine tablet PO
[2025-06-01 18:08] VITALS: TEMP 97.2
--- NOTE | 2025-06-01 18:16 | ELECTROCARDIOGRAPH REPORT ---
[facility] Test Date: 2025-06-01 Test Time: 18:14:41 Pat Name: BARBARA BOLAÑOS Department: [facility] Patient ID: [facility]-[id number] Room: Gender: M Accountant Supervisor: : 1985 Requested By: CHLOÉ CORADO Order Number: [id number] Reading MD: Measurements Intervals [place] Rate: 115 P: 51 FL: 135 QRS: 68 QRSD: 69 T: 32 QT: 309 QTc: 428 Interpretive Statements Sinus tachycardia Please click the below link to view image of tracing.
--- NOTE | 2025-06-01 18:40 | Physician Documentation ---
History of Present Illness ~ Chief Complaint: ETOH Withdrawl Stated Complaint: DETOX Time Seen by MD: 18:13 Primary Medical Doctor: NONE Mode of Arrival: POV HPI 39-year-old male well known to the ED for alcohol abuse issues presents today stating that he intends to go to [facility] at the beginning of the month. however he has been drinking 1-2 gal of hard alcohol daily. Patient's with slurred speech but is still able to report what appears to be an accurate history of events. Tetanus within 5 years?: Yes Medication Reconciliation Allergies: Coded Allergies: No Known Allergies (Unverified , 05/19/25) Scheduled Folic Acid* (Folic Acid*), 1 MG PO DAILY Pantoprazole Sodium (Pantoprazole Sodium), 40 MG PO BKF [thiamine tablet], 100 MG PO DAILY Past Medical History Past Medical History: No Pertinent History Past Surgical History: noncontributory Patient History: Patient reports no known family medical history. Alcohol Use: Heavy Drug Use: marijuana Lives with: Mother Lives In: Homeless Occupation: unemployed Physical Exam Vital Signs: Temperature: 97.2, Source: Temporal, Heart Rate: 119, Respiratory Rate: 18, BP: 144/111, Pulse Oximetry: 97, Weight: 82.730 Oxygen Flow Rate: 0 Physical Exam General: Alert, slurred speech HEENT: PERRL, EOMI, no injection, moist mucous membranes. glossy eyes Respiratory: Lungs clear, no respiratory distress. Cardiovascular: Regular rate and rhythm, no murmurs. Gastrointestinal: Soft, nontender, nondistended. Bowels sounds present. Neurologic: Oriented x4. Psychiatric: Normal mood and affect. Skin: Normal color, warm and dry. No edema, no ecchymosis. Progress Results/Orders Results/Orders Orders - KOTA CORADO EGG PRODUCER Urinalysis, Cult If Indicated (06/01/25 18:13) Gait Test (06/01/25 21:13) Recheck Vital Signs (06/01/25 21:13) Reassess Pt For Discharge (06/01/25 21:13) Completed Orders - KOTA CORADO EGG PRODUCER Cbc/Diff (06/01/25 18:13) BMP (06/01/25 18:13) Lipase (06/01/25 18:13) CMP (06/01/25 18:13) Electrocardiogram (06/01/25 ) Ethanol (06/01/25 18:15) Normal Saline 1000ml (0.9% Sodium Chlori (06/01/25 18:45) Medications Received in ER Medications (Trade) Dose Ordered Sig/Chago Route PRN Reason Start Time Stop Time Status Last Admin Dose Admin Sodium Chloride 1,000 ml @ 2,000 mls/hr ONCE ONCE IV 06/01/25 18:45 06/01/25 19:14 DC 06/01/25 18:52 2,000 MLS/HR Vital Signs 06/01/25 06/01/25 06/01/25 06/01/25 18:08 18:31 19:27 20:56 Temp 97.2 Pulse 119 93 94 Resp 22 18 16 16 B/P (MAP) 144/111 132/90 (104) 125/84 (98) Pulse Ox 97 99 99 O2 Flow Rate 0 Laboratory Tests Test 06/01/25 18:19 06/01/25 21:00 White Blood Count 6.6 Red Blood Count 5.07 Hemoglobin 16.4 Hematocrit 47.0 Mean Corpuscular Volume 92.8 Mean Corpuscular Hemoglobin 32.5 H Mean Corpuscular Hemoglobin Concent 35.0 Red Cell Distribution Width 14.2 Platelet Count 96 L Mean Platelet Volume 7.8 Neutrophils (%) (Auto) 36.1 L Lymphocytes (%) (Auto) 51.5 H Monocytes (%) (Auto) 8.4 Eosinophils (%) (Auto) 1.7 Basophils (%) (Auto) 2.3 H Neutrophils # (Auto) 2.4 Lymphocytes # (Auto) 3.4 Monocytes # (Auto) 0.5 Eosinophils # (Auto) 0.1 Basophils # (Auto) 0.1 CBC Comment Sodium Level 145 Potassium Level 3.4 L Chloride Level 104 Carbon Dioxide Level 28.1 Anion Gap 13 Blood Urea Nitrogen 4 L Creatinine 0.78 Estimated GFR/1.73 m2 > 90 BUN/Creatinine Ratio 5.1 L Glucose Level 120 H Calcium Level 8.3 L Total Bilirubin 0.6 Aspartate Amino Transf (AST/SGOT) 243 H Alanine Aminotransferase (ALT/SGPT) 247 H Alkaline Phosphatase 95 Total Protein 7.2 Albumin 3.6 Globulin 3.6 Albumin/Globulin Ratio 1.0 L Lipase 38 Chemistry Comments Ethyl Alcohol Level 367 H Urine Comment Medical Decision Making Findings This patient presented initially very intoxicated. His ETOH levels well over 300 which is not surprising considering the amount of alcohol he reportedly ingested I treated him with normal saline. This patient presents more as an alcohol intoxication versus alcohol withdrawal as the patient reported. He was monitored and observed for several hours. The nursing staff evaluated patient for discharge via gait test vital signs and overall reassessment for discharge Differential Dx:Considerations: Intoxication - ETOH, Intoxication - other drug, Sub. Abuse -continuous, Sub. Abuse-intermittent, Skull fracture, Fracture - other bone, Personality disorder, Closed head injury, Cervical spine injury, Abrasion, Confusion, Hematoma, Laceration, Foreign body, Dehydration, Encephalopathy, Hepatitis, Pancreatitis, Thiamine deficiency, Other Departure Disposition: 01 HOME / SELF CARE / HOMELESS Impression: Primary Impression: Alcoholic intoxication Condition: Stable Discharge Instructions: Alcohol Intoxication Referrals: NO PRIMARY CARE PROVIDER (PCP) Signature Scribe Signature: v Attestation: Scribed for Kota Corado Np by Kota Murry NP . 06/01/25 18:57 KOTA CORADO NP Jun 01, 2025 18:40
[2025-06-01] MEDS: normal saline 1000ml 1,000 ML IV ONE (18:52)
[2025-06-01 18:59] LABS: MEAN PLATELET VOLUME 7.8 FL (7.4-10.4); RED CELL DISTRIBUTION WIDTH 14.2 % (11.5-14.5)
[2025-06-01 19:17] LABS: CREATININE 0.78 MG/DL (0.60-1.10); TOTAL CARBON DIOXIDE 28.1 MMOL/L (24-32); eCRCL 128 ML/MIN; eGFR > 90 ML/MIN
[2025-06-01 19:38] LABS: ETHANOL 367 MG/DL (<10)
[2025-06-01 20:56] VITALS: BP 125/84; PULSE 94; RESP 16; O2SAT 99
[2025-06-01 21:18] LABS: LEUKOCYTE ESTERASE ,URINE NEGATIVE (Neg); NITRITES, URINE NEGATIVE (Neg); OCCULT BLOOD,URINE NEGATIVE (Neg)
[2025-06-01 21:35] LABS: UA COLLECTION TYPE URINAL
== END 2025-06-01 21:53 | disposition home or self-care (01) ==
LOC: ER 18:05
DX: F10.129 Alcohol abuse with intoxication, unspecified (principal); F12.90 Cannabis use, unspecified, uncomplicated; Z56.0 Unemployment, unspecified; Z59.00 Homelessness unspecified; Z79.899 Other long term (current) drug therapy; Y90.8 Blood alcohol level of 240 mg/100 ml or more
CPT/HCPCS: 36415; 80053; 80320; 81003; 83690; 85025; 93005; 96360; 96361; 99284; J7030

== ENCOUNTER 2025-06-06 18:50 | Emergency (ER) | payer MEDICAID, OTHER ==
[~2025-06-06] VITALS: Ht 177.8 cm; Wt 81.8 kg
[2025-06-06 18:53] VITALS: TEMP 98
[2025-06-06 19:15] LABS: MEAN PLATELET VOLUME 7.6 FL (7.4-10.4); RED CELL DISTRIBUTION WIDTH 14.3 % (11.5-14.5)
[2025-06-06 19:27] LABS: CREATININE 0.85 MG/DL (0.60-1.10); TOTAL CARBON DIOXIDE 27.3 MMOL/L (24-32); eCRCL 122 ML/MIN; eGFR > 90 ML/MIN
[2025-06-06 19:42] LABS: ETHANOL 378 MG/DL (<10)
[2025-06-06] MEDS: potassium Cl 20 mEq SR tablet PO STA (20:21)
--- NOTE | 2025-06-06 20:24 | Physician Documentation ---
History of Present Illness ~ Chief Complaint: ETOH Stated Complaint: ETOH Time Seen by MD: 19:50 Primary Medical Doctor: NONE HPI This is a 39-year-old male who presents with alcohol intoxication, patient was found in his trailer parked in front of a rehab center as he is awaiting appointment to get into the rehab center on Friday, patient reports drinking approximately half a gal of hard alcohol today and reports normally drinks around a gal of hard alcohol daily. Patient reports that is if discharged from the emergency department he would leave to start drinking again. Tetanus within 5 years?: Yes Medication Reconciliation Allergies: Coded Allergies: No Known Allergies (Unverified , 05/19/25) Scheduled Folic Acid* (Folic Acid*), 1 MG PO DAILY Pantoprazole Sodium (Pantoprazole Sodium), 40 MG PO BKF Potassium Chloride* (K-Dur*), 2 TAB PO DAILY [thiamine tablet], 100 MG PO DAILY Scheduled PRN Promethazine HCl (Promethazine HCl), 1 TAB PO Q6H PRN PRN for nausea/vomiting Past Medical History Past Medical History: No Pertinent History Past Surgical History: noncontributory Patient History: Patient reports no known family medical history. Alcohol Use: Heavy Drug Use: marijuana Lives with: Mother Lives In: Homeless Occupation: unemployed Review of Systems ROS As stated above in the HPI, otherwise all systems are reviewed and negative. Physical Exam Vital Signs: Temperature: 98.0, Source: Oral, Heart Rate: 89, Respiratory Rate: 19, BP: 128/80, Pulse Oximetry: 98, Weight: 81.820 Oxygen Flow Rate: 0 Physical Exam VITALS: Reviewed and as above. GENERAL: Alert, nontoxic appearing, no apparent distress. HEENT: PERRLA, EOMI RESPIRATORY: No increased work of breathing, no respiratory distress, speaking in full clear sentences, clear lung sounds in all lance CHEST: Nontender to palpation CV: Regular rate and rhythm no murmur BACK: No CVA tenderness, no central spinal tenderness to palpation GI: Soft, nontender, no rebound, no guarding, bowel sounds present MUSCULOSKELETAL: SKIN: Warm and dry NEURO: Alert and oriented x4 PSYCH: Mildly agitated Progress Results/Orders Results/Orders Completed Orders - [place] TIWARI Potassium Cl Sr Tablet (K-Dur Tablet) (06/06/25 20:13) Magnesium Oxide Tablet (Mag-Ox 400mg Tab (06/06/25 20:15) Vital Signs 06/06/25 06/06/25 06/06/25 18:53 19:38 21:20 Temp 98.0 Pulse 108 89 78 Resp 16 19 19 B/P (MAP) 126/109 128/80 (96) 128/80 Pulse Ox 97 98 98 O2 Flow Rate 0 0 Laboratory Tests Test 06/06/25 19:04 White Blood Count 5.7 Red Blood Count 4.99 Hemoglobin 15.9 Hematocrit 46.6 Mean Corpuscular Volume 93.4 Mean Corpuscular Hemoglobin 31.9 H Mean Corpuscular Hemoglobin Concent 34.2 Red Cell Distribution Width 14.3 Platelet Count 115 L Mean Platelet Volume 7.6 Neutrophils (%) (Auto) 33.2 L Lymphocytes (%) (Auto) 51.6 H Monocytes (%) (Auto) 10.0 Eosinophils (%) (Auto) 3.8 Basophils (%) (Auto) 1.4 H Neutrophils # (Auto) 1.9 Lymphocytes # (Auto) 3.0 Monocytes # (Auto) 0.6 Eosinophils # (Auto) 0.2 Basophils # (Auto) 0.1 CBC Comment Sodium Level 148 H Potassium Level 3.1 L Chloride Level 110 H Carbon Dioxide Level 27.3 Anion Gap 11 Blood Urea Nitrogen 4 L Creatinine 0.85 Estimated GFR/1.73 m2 > 90 BUN/Creatinine Ratio 4.7 L Glucose Level 109 H Calcium Level 8.4 L Total Bilirubin 0.4 Aspartate Amino Transf (AST/SGOT) 133 H Alanine Aminotransferase (ALT/SGPT) 155 H Alkaline Phosphatase 94 Total Protein 6.9 Albumin 3.5 Globulin 3.4 Albumin/Globulin Ratio 1.0 L Lipase 52 Chemistry Comments Ethyl Alcohol Level 378 H Medical Decision Making Findings This 39-year-old male presented by EMS due to alcohol intoxication after being found with a half empty gal of vodka next to him in the parking lot of a rehabilitation center, patient reports that he has an appointment to enter this rehab program though has no intention to stop drinking until he begins the program. Patient is currently medically sober as he is able to ambulate in the department without difficulty, patient does have an appointment to enter treatment program for alcohol abuse, as patient reports that he would continuing to drink if discharged with medication to assist with alcohol withdrawal he will not be prescribed medications for alcohol withdrawal. Due to low potassium on labs patient discharged with short course of oral potassium repletion. Patient reports feeling no other acute symptoms or concerns and is otherwise well- appearing with a benign physical exam. Patient is appropriate for outpatient follow up. Patient is medically cleared to enter [facility]. Careful return to care precautions, follow up instructions, and home care instructions discussed with the patient who verbalized understanding. Differential Dx:Considerations: Intoxication - ETOH, Intoxication - other drug, Sub. Abuse -continuous, Sub. Abuse-intermittent, Personality disorder, Closed head injury, Abrasion, Confusion, Laceration, Foreign body, Dehydration, Encephalopathy, Pancreatitis, Thiamine deficiency, Other (Alcohol withdrawal) Departure Time of Disposition: 20:29 Disposition: HOME / SELF CARE / HOMELESS Impression: Primary Impression: Alcoholic intoxication Qualified Codes: F10.920 - Alcohol use, unspecified with intoxication, uncomplicated Additional Impression: Alcohol abuse Condition: Improved Discharge Instructions: Alcohol Intoxication Additional Instructions: You are medically cleared to enter [facility], please follow up with [facility] soon as possible to enter your program. Please continue to take the prescribed potassium replacement as your potassium was a little low in the emergency department. You may use the prescribed Phenergan as needed for nausea and vomiting. Please follow up with your primary care provider in the next few days. Please return to the emergency department for any new or worsening concerning symptoms. Referrals: NO PRIMARY CARE PROVIDER (PCP) Prescriptions Potassium Chloride* (K-Dur*) 20 Meq Tab.prt.sr 2 TAB PO DAILY for 5 Days, #10 TAB Prov: [place] TIWARI 06/06/25 Promethazine HCl (Promethazine HCl) 25 Mg Tablet 1 TAB PO Q6H PRN PRN for nausea/vomiting for 5 Days, #20 TAB Prov: [place] TIWARI 06/06/25 Education Educated: Patient Educated regarding: diagnosis, treatment, prognosis, need for follow up Signature Scribe Signature: No scribe Attestation: The note accurately reflects work and decisions made by me.PETER Buckley 06/08/25 14:56 FLORDIA TIWARI Jun 06, 2025 20:24
[2025-06-06] MEDS ORDERED: PROM25TA14 PO (20:29)
[2025-06-06] MEDS ORDERED: POTA-207 PO (20:29)
[2025-06-06 21:20] VITALS: BP 128/80; PULSE 78; RESP 19; O2SAT 98
== END 2025-06-06 21:20 | disposition home or self-care (01) ==
LOC: ER 18:50
DX: F10.120 Alcohol abuse with intoxication, uncomplicated (principal); F12.90 Cannabis use, unspecified, uncomplicated; Z59.00 Homelessness unspecified; Z56.0 Unemployment, unspecified; Z79.899 Other long term (current) drug therapy; Y90.8 Blood alcohol level of 240 mg/100 ml or more
CPT/HCPCS: 80053; 80320; 83690; 85025; 99284; J7030

== ENCOUNTER 2025-06-20 16:18 | Emergency (ER) | payer MEDICAID, OTHER ==
[~2025-06-20] VITALS: Ht 177.8 cm; Wt 79.1 kg
[2025-06-20 16:24] VITALS: BP 142/90; PULSE 110; RESP 18; O2SAT 100
--- NOTE | 2025-06-20 17:08 | Physician Documentation ---
History of Present Illness ~ Chief Complaint: Medical Clearance Stated Complaint: MEDICAL CLEARANCE Time Seen by MD: 16:59 Primary Medical Doctor: NONE HPI 39-year-old male presents to the ED requesting medical clearance to go to [facility] tomorrow for alcohol use disorder. Last drink was yesterday. States that he recently relapsed and is upset about his decisions. States he is ready to make a change in his life. Tetanus within 5 years?: Yes Medication Reconciliation Allergies: Coded Allergies: No Known Allergies (Unverified , 06/20/25) Scheduled Folic Acid* (Folic Acid*), 1 MG PO DAILY Pantoprazole Sodium (Pantoprazole Sodium), 40 MG PO BKF [thiamine tablet], 100 MG PO DAILY Past Medical History Past Medical History: No Pertinent History Past Surgical History: noncontributory Patient History: Patient reports no known family medical history. Alcohol Use: Heavy Drug Use: marijuana Lives with: Mother Lives In: Homeless Occupation: unemployed Review of Systems All Other Systems at this time: Reviewed and Negative ROS As stated above in the HPI, otherwise all systems are reviewed and negative. Physical Exam Vital Signs: Temperature: 97.8, Source: Oral, Heart Rate: 110, Respiratory Rate: 18, BP: 142/90, Pulse Oximetry: 100, Weight: 79.100 Oxygen Flow Rate: 0 Physical Exam General: Alert, no apparent distress. Respiratory: Lungs clear, no respiratory distress. Cardiovascular: Regular rate and rhythm, no murmurs. Gastrointestinal: Soft, nontender, nondistended. Bowels sounds present. Neurologic: Oriented x4. Psychiatric: Normal mood and affect. Skin: Normal color, warm and dry. No edema, no ecchymosis. Progress Results/Orders Results/Orders Vital Signs 06/20/25 06/20/25 16:24 17:30 Temp 97.8 97.8 Pulse 110 Resp 18 B/P (MAP) 142/90 Pulse Ox 100 O2 Flow Rate 0 Medical Decision Making Findings Does not present in any acute distress noisy presenting with a overt alcohol withdrawal symptoms. Vitals are reassuring I am going to discharge him for outpatient therapy and medically clear him for [facility] Differential Dx:Considerations: Include: Intoxication-Alcohol, Intoxication- Other drug, Personality disorder, Substance abuse disorder, Acute delirium, Closed head injury, Cervical spine injury, Skull fracture, Fracture(s), Abrasion, Contusion, Foreign body, Hematoma, Laceration, Alcohol withdrawl syndrom, Encephalopathy, Hepatitis, Medically stable, Other Departure Impression: Primary Impression: Alcohol abuse Condition: Stable Additional Instructions: Medically cleared for alcohol rehab Referrals: NO PRIMARY CARE PROVIDER (PCP) Education Educated: Patient Educated regarding: diagnosis Signature Scribe Signature: h Attestation: Scribed for Kota Corado Senior Systems Programmer by Kota Murry NP . 06/20/25 21:39 KOAT CORADO CATIA DESIGNER Jun 20, 2025 17:08
[2025-06-20 17:30] VITALS: TEMP 97.8
== END 2025-06-20 17:32 | disposition home or self-care (01) ==
LOC: ER 16:19
DX: F10.10 Alcohol abuse, uncomplicated (principal); F12.90 Cannabis use, unspecified, uncomplicated; Z59.00 Homelessness unspecified; Z56.0 Unemployment, unspecified; Z79.899 Other long term (current) drug therapy; Y90.9 Presence of alcohol in blood, level not specified
CPT/HCPCS: 99281

== ENCOUNTER 2025-09-10 13:16 | Inpatient (IN) | payer MEDICAID ==
[~2025-09-10] VITALS: Ht 175.3 cm; Wt 71.3 kg
--- NOTE | 2025-09-10 13:39 | ELECTROCARDIOGRAPH REPORT ---
[facility] Test Date: 2025-09-10 Test Time: 13:30:33 Pat Name: BARBARA BOLAÑOS Department: EMERGENCY ROOM Room: [place] [address] Gender: M Event Technician: BRINA : 1985 Requested By: YOLANDA HUIZAR Order Number: [id number] Reading MD: Dr. MARCY Mancia Measurements Intervals [place] Rate: 135 P: 60 UT: 104 QRS: 34 QRSD: 87 T: -10 QT: 321 QTc: 482 Interpretive Statements Sinus tachycardia Ventricular premature complex Aberrant complex Minimal ST depression, diffuse leads Borderline prolonged QT interval Electronically Signed On 09-11-2025 13:08:[address] MARCY Mancia Please click the below link to view image of tracing.
[2025-09-10] MEDS: thiamine 100mg/ml 2ml inj. IV ONE (13:44)
[2025-09-10] MEDS: normal saline 1000ML IV soln IVB ONE (13:45)
[2025-09-10] MEDS: folic acid 1mg/0.2ml inj IV ONE (13:51)
[2025-09-10 14:22] LABS: MEAN PLATELET VOLUME 8.6 FL (7.4-10.4)
[2025-09-10 14:23] LABS: RED CELL DISTRIBUTION WIDTH 14.2 % (11.5-14.5)
--- NOTE | 2025-09-10 14:28 | Physician Documentation ---
Addendum CHIEF COMPLAINT/HPI: The patient is a 39-year-old male with a history of alcohol abuse. He normally drinks about a 0.5 gal of distilled spirits daily. He reports that he has not had any alcohol for the past five days with the exception of a single drink prior to coming to the emergency department. He is feeling tremulous, diaphoretic and tachycardic. No history of withdrawal seizures. REVIEW OF SYSTEMS: Constitutional: Tremulous, diaphoretic and tachycardic. Quite anxious. HEENT: Denies hearing loss, sinus pressure or visual changes. Respiratory: Denies cough, shortness of breath or wheezing. Cardiovascular: Denies chest pain, pain while walking (claudication), edema or palpitations. Gastrointestinal: Patient has been vomiting, little at mixed blood. Genitourinary: Denies painful urination (dysuria), excessive amount of urine (polyuria) or urinary frequency. Metabolic/Endocrine: Denies cold intolerance, heat intolerance, excessive thirst (polydipsia) or excessive hunger (polyphagia). Neurological: Denies dizziness, extremity numbness, extremity weakness, headaches, seizures or tremors. Psychiatric: Denies anxiety or depression. Integumentary: Denies breast discharge, breast lump, hives, mole change(s), ra sh or skin lesion. Musculoskeletal: Denies back pain, joint pain, joint swelling or neck pain. Hematologic: Denies easily bleeding, easily bruises, lymphedema or issues with blood clots. Immunologic: Denies food allergies or seasonal allergies. PHYSICAL EXAMINATION: Vitals and nursing note reviewed. Constitutional: General: Patient is awake, alert, oriented x 4. He is complaining of alcohol withdrawal. Appearance: Normal appearance. Patient is not ill-appearing, toxic-appearing or diaphoretic. HENT: Head: Normocephalic and atraumatic. Mouth: Mucous membranes are moist. Pharynx: Oropharynx is clear. Eyes: General: No scleral icterus. Extraocular Movements: Extraocular movements intact. Pupils: Pupils are equal, round, and reactive to light. Neck: Supple, no Kernig or Brudzinski sign. Cardiovascular: Rate and Rhythm: Normal rate and regular rhythm. Heart sounds: No murmur heard. Pulmonary: Effort: No respiratory distress. Breath sounds: No wheezing, rhonchi or rales. Abdominal: General: There is no distension. Palpations: There is no fluid wave, hepatomegaly or mass. Tenderness: There is no abdominal tenderness. There is no guarding. Musculoskeletal: General: No swelling or deformity. Skin: Coloration: Skin is not jaundiced. Findings: No erythema or rash. Neurological: Mental Status: Patient is alert. MEDICAL DECISION MAKING: This 39-year-old man presents five days after his last drink with a strong history of alcohol abuse. He is going through alcohol withdrawal. He was tachycardic, diaphoretic with a CIWA score of 24. I have treated him with fluids, phenobarbital and Ativan. His troponin came back elevated as well as his lipase. I have ordered additional fluids, CK and CT abdomen pelvis. He will require admission. Departure Disposition: ADMITTED INPATIENT Admitted to Inpatient Unit: to hospitalist Admission Level of Care: Ortho with Tele Impression: Primary Impression: Alcohol withdrawal syndrome Additional Impressions: Elevated troponin Elevated lipase Condition: Guarded DE MARCIO KIRBY MD Sep 10, 2025 14:28
[2025-09-10 14:33] LABS: CREATININE 1.16 MG/DL (0.60-1.10); TOTAL CARBON DIOXIDE 32.1 MMOL/L (24-32); eCRCL 86 ML/MIN; eGFR 70 ML/MIN
[2025-09-10] MEDS ORDERED: potassium CL 10mEq/100ml bag 100 ML IV SCH ×2 (14:50)
[2025-09-10 15:14] LABS: ETHANOL < 10 MG/DL (<10)
[2025-09-10 15:15] LABS: INR 1.1 INR
[2025-09-10] MEDS: potassium Cl 40MEQ/1/2NS 520ml 520 ML IV PRN ×2 (15:17→20:01)
[2025-09-10] MEDS: magnesium sulf-water 2g/50mL 50 ML IV ONE (15:21)
[2025-09-10] MEDS: normal saline 1000ml 1,000 ML IV ONE (17:54)
[2025-09-10] MEDS ORDERED: ondansetron/PF 4mg/2ml inj IV PRN (18:25)
[2025-09-10] MEDS ORDERED: magnesium sulf-water 2g/50mL 50 ML IV PRN (18:25)
[2025-09-10] MEDS ORDERED: magnesium sulf-water 4G/100mL 100 ML IV PRN (18:25)
[2025-09-10] MEDS ORDERED: bisacodyl 10mg suppository rectal RC PRN (18:25)
[2025-09-10] MEDS ORDERED: magnesium Cl slow-release 64mg tablet PO PRN (18:25)
[2025-09-10] MEDS: K and/or MAG REPLACEMENT MC SCH (18:45)
--- NOTE | 2025-09-10 18:54 | HISTORY AND PHYSICAL ---
History & Physical Providers to ~ History of Present Illness Reason for Admit\Complaint: feeling tremulous, diaphoretic and tachycardic. History of Present Illness This is a 39-year-old male patient with a past medical history of alcohol use disorder, ADHD. He normally drinks about a 0.5 gal of distilled spirits daily. He reports that he has not had any alcohol for the past five days with the exception of a single drink prior to coming to the emergency department. He is feeling tremulous, diaphoretic and tachycardic. No history of withdrawal seizures. Patient denied any chest pain to me no irregular heart rate. He is willing to try clear liquid diet even though he told me that he had episode of vomiting prior coming to the hospital. No other concerns. Patient was admitted in May 20, 2025 for similar issues in he had three more visits since May to hospital for alcohol intoxication. Patient also mentioned that he needs something for the lower back pain relief . Allergies: Coded Allergies: No Known Allergies (Unverified , 09/10/25) Home Medications Home Medications Active Pantoprazole Sodium 40 Mg Tablet.dr 40 Mg PO BKF 30 Days [thiamine tablet] 100 MG Tablet 100 Mg PO DAILY 30 Days Folic Acid* (Folic Acid) Y Tab 1 Mg PO DAILY 30 Days Past Medical History Past Medical History Alcohol use disorder ADHD Past Surgical History Surgical History Comment Reconstructive face surgery after dog bite Family History Family History: Patient reports no known family medical history. Past Social History Social History Comment Patient smokes five cigarettes daily since he was 16-year-old. Patient started to drink alcohol when he was 21-year-old but has been abusing from it for the last five years. Patient used marijuana and denies any other drugs. Patient is homeless, lives in a truck Exam Vitals: Vital Signs Date Time Temp Pulse Resp B/P (MAP) Pulse Ox O2 Delivery O2 Flow Rate FiO2 09/10/25 18:41 97.2 92 11 124/71 (88) 97 0 General: General-patient not in any acute distress, awake , responded well to verbal commands, ill-appearing HEENT-atraumatic normocephalic, neck supple without elevated JVD, no thyromegaly or carotid bruit. No lymphadenopathy bilaterally. Eyes-no icterus or pallor seen in eyes Chest-clear to auscultation bilaterally, breathing nonlabored no tachypnea, no wheezing, no crepitation, no crackles. Heart-S1-S2 normal, regular heart rate no murmur Abdomen bowel sounds positive on auscultation, soft nondistended nontender no guarding, no rigidity Skin no active skin rash Neurology-grossly intact, nonfocal awake Extremity- no pedal edema able to move all 4 extremities Psychiatry - patient is not confused or agitated cooperated during physical examination Diagnostic Data Last Recorded Lab Results: 09/10/25 1410 09/10/25 1410 Diagnostic Data: Laboratory Tests Test 09/10/25 14:56 Prothrombin Time 11.0 SECONDS (9.0-12.0) INR International Normalized Ratio 1.1 INR Coagulation Comments Advance Care Planning Advanced Care plannin - 30 Minutes Additional Plan This is a 39-year-old male patient with a past medical history of alcohol use disorder, ADHD, he is admitted today for alcohol withdrawal Alcohol withdrawal Normal saline at 150 mL/hr Zofran + Reglan p.r.n. ordered alcohol withdrawal protocol Ordered clear liquid diet. will Progress as tolerated. elevated lipase, PT, PTT Ordered drug screen Ordered social service and substance use navigator Elevated troponin likely type 2 NV Most likely secondary to alcohol intoxication EKG: Sinus tachycardia, no ischemic signs Ordered chest x-ray, Moderate hypokalemia K 2.2 Replacement per protocol Monitor daily Code Status: Full code DVT prophylaxis: Enoxaparin Analgesia/sedation: Morphine Line/tube: PIV GI prophylaxis: Pantoprazole Nutrition: clear liquid diet We will continue to monitor patient's labs and vitals closely . All labs, diagnostic workup, old records and ER records reviewed Needs physical therapy evaluation before discharge . Code status discussed with the patient patient wishes full code Time spent in discussing code status 16 minutes. We will do home medication reconciliation once updated in electronic by nursing staff or pharmacist. Further management depending on response to treatment and I will continue to follow patient in a.m. Date of Service: Sep 10, 2025 Billing Provider: GROVER GRUBBS MD Common Visit Codes: 93678-[id number] INP/OBS CARE (HIGH) Secondary Visit Codes: [id number]-[id number] CARE PLAN 30 MINUTES GROVER GRUBBS MD Sep 10, 2025 18:54
[2025-09-10] MEDS ORDERED: HYDROcodone/acetaminophen 5mg/325mg tablet PO PRN (18:55)
--- NOTE | 2025-09-10 19:02 | RADIOLOGY REPORT ---
EXAM: CT CT ABDOMEN PELVIS W/ IV CONTRAST HISTORY: Elevated lipase, N/V TECHNIQUE: Volumetric multidetector CT images of the abdomen and pelvis were obtained after the administration of intravenous contrast. All CT scans at this facility use dose modulation, iterative reconstruction, and/or weight based dosing when appropriate to reduce radiation dose to as low as reasonably achievable. COMPARISON: None FINDINGS: [LOWER CHEST]: The partially visualized lung bases are clear without a pleural effusion. [LIVER]: Areas of hypoattenuation and altered perfusion which may be related to transient hepatic attenuation differences of the liver; this also may be seen in the setting of hepatitis. [GALLBLADDER AND BILIARY TREE]: No cholelithiasis. [SPLEEN]: Unremarkable. [PANCREAS]: Trace amount of edema possibly posterior to the pancreatic uncinate process and head along the posterior margin of the duodenum. Correlate for trace pancreatitis/duodenitis. [ADRENAL GLANDS]: Unremarkable [KIDNEYS]: No hydronephrosis. No nephroureterolithiasis. No suspicious focal lesion. [BLADDER]: Minimal anterior bladder wall thickening. [REPRODUCTIVE ORGANS]: Unremarkable. [BOWEL/MESENTERY]: Distal esophageal wall thickening. Intussusception of proximal small bowel loops in the left hemiabdomen. The stomach is normal. No CT evidence of bowel obstruction. [ASCITES]: Absent [LYMPHADENOPATHY]: No pathologically enlarged lymph nodes by CT size criteria [VASCULATURE]: No aneurysmal dilatation. [ABDOMINAL WALL]: Unremarkable. [MUSCULOSKELETAL]: No acute fracture or aggressive focal osseous lesion. Multifocal degenerative change of the visualized spine. IMPRESSION: 1. Trace amount of edema possibly posterior to the pancreatic uncinate process and head along the posterior margin of the duodenum. 2. Correlate for trace pancreatitis/duodenitis. 3. Intussusception of proximal small bowel loops in the left hemiabdomen. 4. Distal esophageal wall thickening. 5. Correlate for esophagitis.
[2025-09-10 19:37] LABS: LEUKOCYTE ESTERASE ,URINE NEGATIVE (Neg); NITRITES, URINE NEGATIVE (Neg); OCCULT BLOOD,URINE NEGATIVE (Neg)
[2025-09-10 19:45] LABS: UA COLLECTION TYPE NON-SPECIFIED
[2025-09-10 19:48] VITALS: BP 120/75; PULSE 94; RESP 16; TEMP 98.3; O2SAT 97
[2025-09-10 19:58] LABS: URINE AMPHETAMINE SCREEN NEGATIVE (Neg); URINE BARBITUATE SCREEN POSITIVE (Neg); URINE BENZODIAZEPINES SCREEN NEGATIVE (Neg); URINE CANNABINOID SCREEN POSITIVE (Neg); URINE COCAINE SCREEN NEGATIVE (Neg); URINE METHADONE SCREEN NEGATIVE (Neg); URINE OPIATE SCREEN NEGATIVE (Neg); URINE PHENCYCLIDINE SCREEN NEGATIVE (Neg)
[2025-09-10] MEDS: normal saline 1000ml 1,000 ML IV SCH (20:00)
[2025-09-10] MEDS: heparin, porcine 5000 units/ml vial SQ SCH (20:00)
[2025-09-10 20:23] VITALS: RESP 16; O2SAT 97
--- NOTE | 2025-09-10 21:03 | RADIOLOGY REPORT ---
EXAM: DI CHEST,SINGLE VIEW TECHNIQUE: Single frontal chest radiograph CLINICAL HISTORY: Elevated troponin COMPARISON: DI CHEST,TWO VIEWS on DOS: 05/20/25, DI CHEST,SINGLE VIEW on DOS: 03/15/25 FINDINGS/IMPRESSION: The lungs are clear. The cardiomediastinal silhouette is unremarkable. No pleural effusion or pneumothorax. No acute osseous abnormality.
[2025-09-10] MEDS: thiamine 100mg/ml 2ml inj. IV SCH (21:49)
[2025-09-10 22:00] VITALS: BP 95/52; PULSE 86; RESP 20; TEMP 99.4; O2SAT 97
[2025-09-10] MEDS: diazepam inj 5 MG/ML inj. IV PRN (22:05)
[2025-09-11 06:34] VITALS: BP 131/82; PULSE 89; RESP 17; TEMP 99.6; O2SAT 99
[2025-09-11 07:23] LABS: MEAN PLATELET VOLUME 9.1 FL (7.4-10.4); RED CELL DISTRIBUTION WIDTH 14.3 % (11.5-14.5)
[2025-09-11] MEDS: multivitamins, therapeutics tablet PO SCH (07:53)
[2025-09-11 08:00] VITALS: RESP 16; RESP 18; O2SAT 98
[2025-09-11 08:51] LABS: CREATININE 0.93 MG/DL (0.60-1.10); PHOSPHORUS 1.4 MG/DL (2.3-4.5); TOTAL CARBON DIOXIDE 32.6 MMOL/L (24-32); eCRCL 108 ML/MIN; eGFR > 90 ML/MIN
[2025-09-11] MEDS: potassium Cl 20 mEq SR tablet PO PRN ×2 (09:20→13:19)
[2025-09-11] MEDS: folic acid 1mg/0.2ml inj IV SCH (09:20)
--- NOTE | 2025-09-11 11:41 | RADIOLOGY REPORT ---
ABDOMINAL RADIOGRAPH Indication: Intussusception in CT scan Technique: 2 frontal radiographs of the abdomen were obtained. Comparison: CT CT ABDOMEN PELVIS W/ IV CONTRAST on DOS: 09/10/25 FINDINGS: Lines and tubes: None There is gaseous distention of small and large bowel without an obstructive pattern. No supine evidence of pneumoperitoneum. IMPRESSION: 1. Nonobstructive bowel-gas pattern.
[2025-09-11 12:17] VITALS: BP 113/65; PULSE 82; RESP 18; TEMP 99.2; O2SAT 100
--- NOTE | 2025-09-11 18:55 | PROGRESS NOTE ---
Daily Progress Note Providers to CC ~ Antibiotic Timeout Antibiotic Ordered?: No Subjective Patient was seen in surgical unit , detailed counseling done regarding risk and consequences of alcohol abuse in detail Objective Vital Signs Date Time Temp Pulse Resp B/P (MAP) Pulse Ox O2 Delivery O2 Flow Rate FiO2 09/11/25 12:17 99.2 82 18 113/65 (81) 100 09/11/25 08:00 Room Air 09/10/25 18:41 0 Result Diagram: 09/11/25 0651 09/11/25 0651 General-patient not in any acute distress, alert awake oriented, chronically ill-appearing HEENT-atraumatic normocephalic, neck supple without elevated JVD, no thyromegaly or carotid bruit. No lymphadenopathy bilaterally. Eyes-no icterus or pallor seen in eyes Chest-clear to auscultation bilaterally, breathing nonlabored no tachypnea, no wheezing, no crepitation, no crackles. Heart-S1-S2 normal, regular heart rate no murmur Abdomen bowel sounds positive on auscultation, soft nondistended nontender no guarding, no rigidity Skin no active skin rash Neurology-grossly intact, nonfocal alert awake oriented Extremity- no pedal edema able to move all 4 extremities Psychiatry - patient is not confused or agitated cooperated during physical examination Coagulation Studies Laboratory Tests Test 09/10/25 14:56 Prothrombin Time 11.0 SECONDS (9.0-12.0) INR International Normalized Ratio 1.1 INR Coagulation Comments Problem\Assessment\Plan This is a 39-year-old male patient with a past medical history of alcohol use disorder, ADHD, he is admitted today for alcohol withdrawal Alcohol withdrawal Normal saline at 100 mL/hr Zofran + Reglan p.r.n. ordered alcohol withdrawal protocol Diet advanced to regular diet improved lipase positive drug screen for cannabis and barbiturates Ordered social service and substance use navigator Elevated troponin likely type 2 MT Most likely secondary to alcohol intoxication EKG: Sinus tachycardia, no ischemic signs chest x-ray done unremarkable Moderate hypokalemia K 2.6 Replacement per protocol Monitor daily Code Status: Full code DVT prophylaxis: Enoxaparin Analgesia/sedation: Morphine Line/tube: PIV GI prophylaxis: Pantoprazole Nutrition: regular diet We will continue to monitor patient's labs and vitals closely . All labs, diagnostic workup, old records and ER records reviewed We will do home medication reconciliation once updated in electronic by nursing staff or pharmacist. Further management depending on response to treatment and I will continue to follow patient in a.m. Date of Service: Sep 11, 2025 Billing Provider: GROVER GRUBBS MD Common Visit Codes: [id number] INP/OBS CARE(HIGH) GROVER GRUBBS MD Sep 11, 2025 18:55
[2025-09-11 22:07] VITALS: RESP 17; O2SAT 98
[2025-09-11 22:17] VITALS: BP 119/70; PULSE 68; RESP 17; TEMP 98.7; O2SAT 98
[2025-09-11 22:30] VITALS: O2SAT 98
[2025-09-12 05:00] VITALS: BP 110/73; PULSE 72; RESP 14; TEMP 99.2; O2SAT 99
[2025-09-12 05:41] LABS: MEAN PLATELET VOLUME 9.2 FL (7.4-10.4); RED CELL DISTRIBUTION WIDTH 14.5 % (11.5-14.5)
[2025-09-12 06:16] LABS: CREATININE 0.71 MG/DL (0.60-1.10); PHOSPHORUS 2.5 MG/DL (2.3-4.5); TOTAL CARBON DIOXIDE 30.9 MMOL/L (24-32); eCRCL 141 ML/MIN; eGFR > 90 ML/MIN
[2025-09-12 10:00] VITALS: BP 132/85; PULSE 84; RESP 16; TEMP 99.3; O2SAT 96
[2025-09-12 10:54] VITALS: RESP 16; O2SAT 96
[2025-09-12] MEDS ORDERED: MULT-25 PO (11:47)
[2025-09-12] MEDS ORDERED: NALT50TA5 PO (11:47)
--- NOTE | 2025-09-12 20:43 | DISCHARGE SUMMARY ---
Discharge Summary Providers to CC ~ Discharge Summary Admission Diagnosis: alcohol withdrawal, hypokalemia Hospital Course DATE OF ADMISSION: 09/10/25 DATE OF DISCHARGE: 09/12/25 CBC testing done on September 12, 2025 WBC 6.1 hemoglobin 14.0 hematocrit 40.1 platelet count 84. Serum chemistry done on September 12, 2025 sodium 143 potassium 3.4 creatinine 0.71 GFR greater than 90 normal liver enzymes AST mildly elevated 71. Lipase 132. Toxicology screen positive for barbiturate and cannabinoids. ABDOMEN,SINGLE VIEW(KUB)IMPRESSION: 1. Nonobstructive bowel-gas pattern. CHEST,SINGLE VIEWFINDINGS/IMPRESSION: The lungs are clear. The cardiomediastinal silhouette is unremarkable. No pleural effusion or pneumothorax. No acute osseous abnormality. CT ABDOMEN PELVISIMPRESSION: 1. Trace amount of edema possibly posterior to the pancreatic uncinate process and head along the posterior margin of the duodenum. 2. Correlate for trace pancreatitis/duodenitis. 3. Intussusception of proximal small bowel loops in the left hemiabdomen. 4. Distal esophageal wall thickening. 5. Correlate for esophagitis. Discharge Diagnosis\Comment: Acute pancreatitis, alcohol withdrawal, elevated troponin likely type 2 ME, moderate hypokalemia Operations\Procedures: None Consultants: None Complications: None Condition on DC: Stable New Medications: Naltrexone Hcl (Naltrexone Hcl) 50 Mg Tablet 1 TAB PO DAILY for 30 Days, #30 TAB 0 Refills Multivitamin with Folic Acid (Thera Tablet) 400 Mcg Tablet 1 EACH PO Q24H for 30 Days, #30 TAB Continued Medications: Folic Acid* (Folic Acid*) Y Tab 1 MG PO DAILY for 30 Days, #30 TAB Pantoprazole Sodium (Pantoprazole Sodium) 40 Mg Tablet.dr 40 MG PO BKF for 30 Days, #30 TAB.SR [thiamine tablet] () 100 MG TABLET 100 MG PO DAILY for 30 Days, #30 Discharge Summary: This is a 39-year-old male patient with a past medical history of alcohol use disorder, ADHD, he is admitted today for alcohol withdrawal Alcohol withdrawal Normal saline at 100 mL/hr Zofran + Reglan p.r.n. ordered alcohol withdrawal protocol Diet advanced to regular diet improved lipase positive drug screen for cannabis and barbiturates Ordered social service and substance use navigator Very detailed counseling done regarding risk and consequences of alcohol abuse. Patient is strongly advised to join alcohol anonymous program. Elevated troponin likely type 2 ME Most likely secondary to alcohol intoxication EKG: Sinus tachycardia, no ischemic signs chest x-ray done unremarkable Acute Pancreatitis patient was started on IV fluids Moderate hypokalemia K 2.6 Replacement done per protocol Monitored daily Code Status: Full code DVT prophylaxis: Enoxaparin Analgesia/sedation: Morphine Line/tube: PIV GI prophylaxis: Pantoprazole Nutrition: regular diet Patient is feeling better he has been afebrile and getting discharged home in stable condition. Patient is seen and examined on the day of discharge. All labs, diagnostic workup and discharge plan discussed with patient and family members in detail before her discharge. All questions and queries answered to the best of my professional medical knowledge. I heard patient's concerns and address appropriately. Patient was cleared by Physical therapy team for home discharge. catalogue and special products manager Tram involved in patient's discharge plan. Discharge instructions provided to the patient. PATIENT NEEDS FOLLOW-UP WITH PRIMARY CARE PHYSICIAN IN OUTPATIENT SETTING IN ONE WEEK, STRONGLY RECOMMENDED TO JOIN ALCOHOL ANONYMOUS PROGRAM IN ALCOHOL CESSATION RECOMMENDED. PLEASE PROVIDE FALL PRECAUTIONS DOCUMENT ACTIVITY TOLERATED General-patient not in any acute distress, alert awake oriented, chronically ill-appearing HEENT-atraumatic normocephalic, neck supple without elevated JVD, no thyromegaly or carotid bruit. No lymphadenopathy bilaterally. Eyes-no icterus or pallor seen in eyes Chest-clear to auscultation bilaterally, breathing nonlabored no tachypnea, no wheezing, no crepitation, no crackles. Heart-S1-S2 normal, regular heart rate no murmur Abdomen bowel sounds positive on auscultation, soft nondistended nontender no guarding, no rigidity Skin no active skin rash Neurology-grossly intact, nonfocal alert awake oriented Extremity- no pedal edema able to move all 4 extremities Psychiatry - patient is not confused or agitated cooperated during physical examination *Problems/Diagnosis: (1) Alcohol withdrawal syndrome Status: Acute (2) Acute pancreatitis Total Time Spent on D/C: > 30 Minutes Date of Service: Sep 12, 2025 Billing Provider: GROVER GRUBBS MD Common Visit Codes: 48016-VZD/OBS DISCH DAY >30min GROVER GRUBBS MD Sep 12, 2025 20:42
== END 2025-09-12 16:00 | disposition home or self-care (01) | DRG 282 ==
LOC: ER 13:16 → ED HOLD 18:27 → SUR 3N 19:56
PROVIDERS: ADMIT Internal Medicine; ATTEND Internal Medicine
PROC: BW211ZZ Computerized Tomography (CT Scan) of Abdomen and Pelvis using Low Osmolar Contrast (ICD-10-PCS; principal; 2025-09-10)
DX: K85.90 Acute pancreatitis without necrosis or infection, unspecified (principal); I21.A1 Myocardial infarction type 2; F10.129 Alcohol abuse with intoxication, unspecified; E87.6 Hypokalemia; Z59.02 Unsheltered homelessness; F17.210 Nicotine dependence, cigarettes, uncomplicated; F90.9 Attention-deficit hyperactivity disorder, unspecified type; Y90.0 Blood alcohol level of less than 20 mg/100 ml; F10.139 Alcohol abuse with withdrawal, unspecified
CPT/HCPCS: 36415; 71045; 74018; 74177; 80053; 80305; 80320; 81003; 82550; 82948; 83690; 83735; 84100; 84132; 84484; 85025; 85610; 87081; 93005; 96374; 96375; 99285; A6258; G0378; J2060; J2470; J2560; J3360; J3411; J3480; J3490; J7030; Q9967